=== PATIENT | male | born 1940 | race Caucasian/White ===

== ENCOUNTER 2024-02-03 14:00 | Outpatient (RCR) | payer MEDICARE, SELFPAY | END 2024-03-23 11:29 | disposition home or self-care (01) | LOC: HO.PT 14:00 | PROVIDERS: PCP Internal Medicine; Visit Provider Internal Medicine | DX: M51.36 Other intervertebral disc degeneration, lumbar region (principal) | CPT/HCPCS: 97110; 97112; 97162 ==

== ENCOUNTER 2024-10-30 18:13 | Inpatient (IN) | payer MEDICARE, SELFPAY ==
--- NOTE | 2024-10-30 | ECG_ITS ---
Test Reason : weakness Blood Pressure : */* mmHG Vent. 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
--- NOTE | ~2024-10-30 | XR_ITS ---
CLINICAL HISTORY: aspiration 1 view chest x-ray Comparison: CR/SR - XR CHEST 1V - 11/03/24 08:32 EST Findings: Slight worsened aeration in the right perihilar region. Remainder of the mediastinum and chest is unchanged. No acute fracture. IMPRESSION: Slight worsened aeration in the right perihilar region. Remainder of the examination is unchanged. This document has been electronically signed by: Azalia Ross MD on 11/05/2024 10:12:14
--- NOTE | ~2024-10-30 | CT_ITS ---
CLINICAL HISTORY: Falls with head strike CT head without contrast Comparison: None Findings: No acute intracranial hemorrhage. Mild volume loss is generalized. No significant midline shift. Cavum velum interpositum. No hydrocephalus. Vascular calcifications noted. No large arterial territorial infarction by CT. Previous cataract procedure changes with mild bilateral myopia. Fluid and mucosal thickening of the paranasal sinuses are multifocal. Small left and trace right mastoid effusions. No acute skull fracture. Scalp calcifications are nonspecific. IMPRESSION: 1. No acute intracranial abnormality by CT. One. 2. Fluid in the paranasal sinuses as can be seen with sinusitis. This document has been electronically signed by: Irvin Arrieta MD on 11/03/2024 22:18:27
--- NOTE | ~2024-10-30 | XR_ITS ---
EXAMINATION: XR CHEST CLINICAL INFORMATION: dyspnea, hpyoxia COMPARISON: October 30, 2024. TECHNIQUE: Frontal view of the chest was obtained. FINDINGS: There is a meniscal shaped opacity in the mid to lower left hemithorax with blunting of the costophrenic angle. There is blunting of the right costophrenic angle. Indistinct margins in the perihilar regions. Indistinct margins in the cardiomediastinal silhouette. No pneumothorax. Multilevel thoracic and upper lumbar spondylosis. Vascular clips in the right upper quadrant abdomen. XR/XR chest 1V IMPRESSION: Pulmonary edema and bilateral pleural effusions, left greater than right, worsened since prior exam. Electronically signed by: Wolfgang Reddy MD 11/03/2024 09:06 AM SUGAR
--- NOTE | ~2024-10-30 | XR_ITS ---
CLINICAL HISTORY: shortness of breath 1 view chest x-ray Comparison: None Findings: The lungs are clear. Normal size heart. No acute fracture. IMPRESSION: 1. No acute findings. This document has been electronically signed by: Gagandeep eLe MD on 10/30/2024 21:51:02
[2024-10-30 18:32] VITALS: BP 110/69; BP 115/62; PULSE 79; PULSE 86; RESP 19; TEMP 38.3; O2SAT 96; BMI 29.8
[2024-10-30 18:38] VITALS: BP 115/62; PULSE 79; RESP 19; TEMP 38.3; O2SAT 96
[2024-10-30] MEDS: Acetaminophen 325 MG TABLET 975 MG PO (18:47)
[2024-10-30 18:53] LABS: MANUAL DIFF FLAG NO
[2024-10-30 18:58] LABS: Basophils Percent Auto 0.3 % (0-2); Eosinophils Percent Auto 0.2 % (0-4); Hematocrit 35.7 % (42.0-52.0); Hemoglobin 12.7 g/dl (14.0-18.0); Imm Gran Abs Auto 0.11 X10*3/uL (0.00-0.03); Imm Gran Pct Auto 1.1 % (0.0-0.4); Lymphocytes Absolute Auto 0.5 X10*3/uL (1.2-4.9); Lymphocytes Percent Auto 4.5 % (20-40); Mean Corpuscular HGB Conc 35.6 g/dl (31.0-36.0); Mean Corpuscular Hemoglobin 33.8 pg (27.0-33.0); Mean Corpuscular Volume 94.9 fL (80.0-98.0); Mean Platelet Volume 9.1 fL (9.4-12.4); Monocytes Percent Auto 9.8 % (2-11); Neutrophils Absolute Auto 8.8 x10*3/uL (2.0-8.3); Neutrophils Percent Auto 84.1 % (45-73); Platelet Count 162 X10*3/uL (160-400); Red Blood Count 3.76 X10*6/uL (4.60-5.80); Red Cell Distribution Width 13.7 % (11.0-16.0); White Blood Count 10.5 X10*3/uL (4.8-10.8)
--- NOTE | 2024-10-30 19:08 | PC.NURSE ---
this rn assumed care of pt, pt a&ox4, respirations even and unlabored. pt reporting increased weakness with fall today. pt denies sob/cp. tech at bedside to redraw labs at this time.
[2024-10-30 19:25] VITALS: BP 117/60; PULSE 69; RESP 18; TEMP 37.3; O2SAT 95
[2024-10-30 19:40] VITALS: BP 109/70; PULSE 73; RESP 30; TEMP 37.3; O2SAT 94
--- NOTE | 2024-10-30 19:41 | MHC.EDTECH ---
This tech took over care of pt at 1900,rounded and introduced self to pt,vitals taken,labs,sars/flu/rsv ,urine,and both set of blood cultures obtained and sent to lab. Assisted patient with urinal,pt urinated 50MLS of yellow urine,carl-care given,call cope in reach
[2024-10-30 19:42] LABS: Lactic Acid 1.1 mmol/L (0.5-2.0)
[2024-10-30 19:43] LABS: Alanine Aminotransferase 51 U/L (0-40); Albumin Level 3.9 g/dL (3.5-5.0); Alkaline Phosphatase 69 U/L (39-117); Aspartate Amino Transferase 38 U/L (5-37); Bilirubin Direct 0.2 mg/dL (0.0-0.5); Bilirubin Total 0.6 mg/dL (0.0-1.0); Lipase 5 U/L (8-78); Total Protein 6.8 g/dL (6.5-8.0)
[2024-10-30 19:44] LABS: Alanine Aminotransferase 49 U/L (0-40); Albumin Level 3.9 g/dL (3.5-5.0); Alkaline Phosphatase 69 U/L (39-117); Anion Gap 13 (12-20); Aspartate Amino Transferase 38 U/L (5-37); Bilirubin Total 0.6 mg/dL (0.0-1.0); Blood Urea Nitrogen 30 mg/dL (9-16); Calcium 8.7 mg/dL (8.4-10.2); Carbon Dioxide 23 mmol/L (22-29); Chloride 106 mmol/L (96-108); Creatinine Clr Calc Pharmacy 48.7; Estimated Glomerular Filt Rate 58; Glucose Random 146 mg/dL (60-115); Potassium 3.6 mmol/L (3.3-5.1); Sodium 138 mmol/L (135-145); Total Protein 6.8 g/dL (6.5-8.0)
[2024-10-30 19:50] LABS: Troponin-I High Sensitivity 12.9 ng/L (<3.5-35.0)
[2024-10-30 19:52] LABS: Influenza A PCR POSITIVE (Negative); Influenza B PCR NEGATIVE (Negative); Resp Syncy Virus RNA Qual PCR NEGATIVE (Negative); SARS COV2 PCR INHOUSE NEGATIVE (Negative)
[2024-10-30 19:53] LABS: Appearance Urine Clear; Color Urine Dark Yellow; Glucose Urine UA Negative (Negative); Leukocyte Esterase Urine Negative (Negative); Nitrite Urine Negative (Negative); PH 5.5 (5.0-9.0); UMIC TRIGGER UACC YES; Urine Blood Moderate (2+) (Negative); Urine Ketones Trace mg/dL (Negative); Urine Protein 100 (2+) mg/dL (Neg-Trace)
[2024-10-30 20:10] LABS: Bacteria Urine None Seen (None Seen); Granular Casts Urine Present; WBC Urine 0-5 /HPF (0-5)
[2024-10-30] MEDS: Oseltamivir Phosphate 75 MG CAPSULE PO (20:20)
--- NOTE | 2024-10-30 20:20 | PC.NURSE ---
pt medicated per nov, tolerated well with water. bedside nursing swallow screen passed at this time.
--- NOTE | 2024-10-30 20:40 | ED_ITS ---
HPI - General Adult General Chief complaint: Weakness Stated complaint: WEAKNESS 2 FALLS FROM BED Time Seen by Provider: 10/30/24 19:08 Source: patient, RN notes reviewed and old records reviewed Mode of arrival: EMS Limitations: no limitations History of Present Illness ED Provider: Mckay SAHNI narrative: 83-year-old male with past medical history significant for hypertension, hyperlipidemia, BPH presents for evaluation of weakness. Patient reports he felt well when he woke up this morning. However around noon today he started to feel weaker than usual. He denies any pain including headaches, chest pain, abdominal pain. He denies any coughing, shortness of breath. He reports he had an outpatient test and was told that he has the flu However given that he was unable to get out of bed twice today without assistance he called EMS On the 2nd phone call they recommended he be brought to the emergency department due to his severe weakness The patient offers no complaints with the exception of weakness. He does live alone this is is currently at a short-term rehab or a broken hip Related Data Allergies Allergy/AdvReac Type Severity Reaction Status Date / Time No Known Allergies Allergy Verified 10/30/24 18:36 Review of Systems 2 Constitutional: Constitutional: Denies body ache(s), Denies chills, Denies fever(s), Denies frequent falls, Reports lethargy and Reports weakness Eyes: Eyes: Denies blurry vision ENT: Denies vertigo and Denies dizziness Cardiovascular: Cardiovascular: Denies chest pain and Denies dyspnea Respiratory: Respiratory: Denies cough and Denies dyspnea Gastrointestinal: Gastrointestinal: Denies abdominal pain, Denies nausea and Denies vomiting Musculoskeletal: Musculoskeletal: Denies back pain Neurologic: Denies vertigo, Denies dizziness, Denies frequent falls and Reports weakness [facility] Past Medical History Medical History (Updated 10/30/24 @ 21:09 by Beatriz Munguia PA-C) KASSIDY on CPAP Social History Social History Smoked in Last 30 Days: No Use of substances other than those prescribed or required for medical reasons: No Advance Directives: No Advance Directives Information Provided: No Do you have a plan to hurt others: No Plan Physical Exam ED Vital Signs: Vital Signs - 24 hr 10/30/24 18:32 10/30/24 18:38 10/30/24 19:25 Temperature 101 F H 101 F H 99.1 F Pulse Rate 79 79 69 Respiratory Rate 19 19 18 Blood Pressure 115/62 115/62 117/60 Pulse Oximetry 96 96 95 Oxygen Delivery Method Room Air Room Air Room Air 10/30/24 19:40 Temperature 99.1 F Pulse Rate 73 Respiratory Rate 30 H Blood Pressure 109/70 Pulse Oximetry 94 Oxygen Delivery Method Room Air BMI result Body Mass Index 29.8 Const General: healthy appearing, comfortable, no acute distress, alert and awake Nutritional Appearance: well nourished Orientation/consciousness: patient oriented x3 HENIL Head: Yes normocephalic and Yes atraumatic Eyes Eyelids: Yes eyelids normal Conjunctivae: conjunctivae normal Sclerae: sclerae normal Corneas: corneas normal Pupils: Equal, round and reactive pupils present EOM: EOMs intact bilaterally Neck Neck: Yes full ROM Resp Effort & Inspection: normal respiratory effort, able to speak in complete sentences, no audible wheezes and not labored Auscultation: clear to auscultation bilaterally Cardio Rate: regular rate Rhythm: regular rhythm GI Inspection: No distended Palpation (GI): Soft to palpation, not firm, nontender, no guarding and not rigid Skin General skin exam: elasticity normal Neuro General: patient oriented x3 Cranial nerves: Yes CN's II-XII intact bilaterally, Yes Equal, round and reactive pupils present and Yes Bilaterally intact EOM present Cognition (Neuro): normal cognition Extrem Other: Moving all extremities well without any obvious deformities Medications Administered Discontinued Medications Generic Name Dose Route Start Last Admin Trade Name Freq PRN Reason Stop Dose Admin Acetaminophen 975 mg 10/30/24 18:43 10/30/24 18:47 Acetaminophen 325 Mg Tablet PO 10/30/24 18:44 975 mg ONCE ONE Administration Oseltamivir Phosphate 75 mg 10/30/24 19:57 10/30/24 20:20 Oseltamivir Phosphate 75 Mg Capsule PO 10/30/24 19:58 75 mg ONCE ONE Administration Medical Decision Making Medical Decision Making [facility] Narrative: 83-year-old male with past medical history as documented above presents for evaluation of weakness. This is global weakness, he has no focal weakness or neurologic deficits. He did test positive for the flu. He was febrile to 101 on arrival which improved with acetaminophen. He is not tachycardic or hypotensive, he has no leukocytosis, he does not meet sepsis criteria. However he was a 2 person assist when standing. I did discuss with the hospitalist who will admit the patient to observation status. Differential Diagnosis Differential Diagnoses: The differential diagnosis associated with the presentation includes Influenza Bronchitis Pneumonia Upper respiratory infection CASSY Hypotension Admission/Observation Consideration of admission/observation: Escalation of care including admission/observation considered Lab Data MDM Lab Attestation statement: I reviewed the patient's lab results. No leukocytosis, the patient does have a mild anemia, not significant enough to explain his weakness. Normal platelet count. No significant electrolyte abnormalities. 10/30/24 18:49 10/30/24 19:19 Labs: Lab Results 10/30/24 10/30/24 10/30/24 Range/Units 18:49 19:11 19:19 WBC 10.5 (4.8-10.8) X10*3/uL RBC 3.76 L (4.60-5.80) X10*6/uL Hgb 12.7 L (14.0-18.0) g/dl Hct 35.7 L (42.0-52.0) % MCV 94.9 (80.0-98.0) fL MCH 33.8 H (27.0-33.0) pg MCHC 35.6 (31.0-36.0) g/dl RDW 13.7 (11.0-16.0) % Plt Count 162 (160-400) X10*3/uL MPV 9.1 L (9.4-12.4) fL Immature Gran % (Auto) 1.1 H (0.0-0.4) % Neut % (Auto) 84.1 H (45-73) % Lymph % (Auto) 4.5 L (20-40) % [place] % (Auto) 9.8 (2-11) % Eos % (Auto) 0.2 (0-4) % Baso % (Auto) 0.3 (0-2) % Lymph # (Auto) 0.5 L (1.2-4.9) X10*3/uL [place] # (Auto) 1.0 (0.1-1.2) X10*3/uL Eos # (Auto) 0.0 (0.0-0.4) X10*3/uL Baso # (Auto) 0.0 (0.0-0.2) X10*3/uL Abs Immat Gran (auto) 0.11 H (0.00-0.03) X10*3/uL Absolute Neuts (auto) 8.8 H (2.0-8.3) x10*3/uL Absolute Nucleated RBC 0.000 (0.0-0.012) X10*3/uL Nucleated RBC % (auto) 0.0 (0.0-0.2) /100WBC Sodium Cancelled 138 Potassium Cancelled 3.6 Chloride Cancelled 106 Carbon Dioxide Cancelled 23 Anion Gap Cancelled 13 BUN Cancelled 30 H Creatinine Cancelled 1.20 Estim Creat Clear Calc Cancelled 48.7 Estimated GFR Cancelled 58 Random Glucose 146 H (60-115) mg/dL Fasting Glucose Cancelled Lactic Acid 1.1 (0.5-2.0) mmol/L Calcium Cancelled 8.7 Total Bilirubin 0.6 (0.0-1.0) mg/dL Direct Bilirubin (0.0-0.5) mg/dL AST (5-37) U/L ALT (0-40) U/L Alkaline Phosphatase (39-117) U/L Troponin I High Sens (<3.5-35.0) ng/L Total Protein (6.5-8.0) g/dL Albumin (3.5-5.0) g/dL Lipase (8-78) U/L Urine Color Urine Appearance Urine pH (5.0-9.0) Ur Specific [place] (1.005-1.025) Urine Protein (Neg-Trace) mg/dL Urine Glucose (UA) (Negative) mg/dL Urine Ketones (Negative) mg/dL Urine Blood (Negative) Urine Nitrite (Negative) Ur Leukocyte Esterase (Negative) Urine RBC (0-2) /HPF Urine WBC (0-5) /HPF Ur Squamous Epith Cells (0-2) /HPF Urine Bacteria (None Seen) Hyaline Casts (0-2) /LPF Granular Casts Influenza Type A (PCR) POSITIVE A (Negative) Influenza Type B (PCR) NEGATIVE (Negative) RSV RNA Qual (PCR) NEGATIVE (Negative) SARS-CoV-2 RNA (RT-PCR) NEGATIVE (Negative) 10/30/24 10/30/24 10/30/24 Range/Units 19:19 19:19 19:19 WBC (4.8-10.8) X10*3/uL RBC (4.60-5.80) X10*6/uL Hgb (14.0-18.0) g/dl Hct (42.0-52.0) % MCV (80.0-98.0) fL MCH (27.0-33.0) pg MCHC (31.0-36.0) g/dl RDW (11.0-16.0) % Plt Count (160-400) X10*3/uL MPV (9.4-12.4) fL Immature Gran % (Auto) (0.0-0.4) % Neut % (Auto) (45-73) % Lymph % (Auto) (20-40) % [place] % (Auto) (2-11) % Eos % (Auto) (0-4) % Baso % (Auto) (0-2) % Lymph # (Auto) (1.2-4.9) X10*3/uL [place] # (Auto) (0.1-1.2) X10*3/uL Eos # (Auto) (0.0-0.4) X10*3/uL Baso # (Auto) (0.0-0.2) X10*3/uL Abs Immat Gran (auto) (0.00-0.03) X10*3/uL Absolute Neuts (auto) (2.0-8.3) x10*3/uL Absolute Nucleated RBC (0.0-0.012) X10*3/uL Nucleated RBC % (auto) (0.0-0.2) /100WBC Sodium Potassium Chloride Carbon Dioxide Anion Gap BUN Creatinine Estim Creat Clear Calc Estimated GFR Random Glucose (60-115) mg/dL Fasting Glucose Lactic Acid (0.5-2.0) mmol/L Calcium Total Bilirubin 0.6 (0.0-1.0) mg/dL Direct Bilirubin 0.2 (0.0-0.5) mg/dL AST 38 H 38 H (5-37) U/L ALT 51 H 49 H (0-40) U/L Alkaline Phosphatase 69 (39-117) U/L Troponin I High Sens (<3.5-35.0) ng/L Total Protein (6.5-8.0) g/dL Albumin (3.5-5.0) g/dL Lipase (8-78) U/L Urine Color Urine Appearance Urine pH (5.0-9.0) Ur Specific [place] (1.005-1.025) Urine Protein (Neg-Trace) mg/dL Urine Glucose (UA) (Negative) mg/dL Urine Ketones (Negative) mg/dL Urine Blood (Negative) Urine Nitrite (Negative) Ur Leukocyte Esterase (Negative) Urine RBC (0-2) /HPF Urine WBC (0-5) /HPF Ur Squamous Epith Cells (0-2) /HPF Urine Bacteria (None Seen) Hyaline Casts (0-2) /LPF Granular Casts Influenza Type A (PCR) (Negative) Influenza Type B (PCR) (Negative) RSV RNA Qual (PCR) (Negative) SARS-CoV-2 RNA (RT-PCR) (Negative) 10/30/24 10/30/24 10/30/24 Range/Units 19:19 19:19 19:19 WBC (4.8-10.8) X10*3/uL RBC (4.60-5.80) X10*6/uL Hgb (14.0-18.0) g/dl Hct (42.0-52.0) % MCV (80.0-98.0) fL MCH (27.0-33.0) pg MCHC (31.0-36.0) g/dl RDW (11.0-16.0) % Plt Count (160-400) X10*3/uL MPV (9.4-12.4) fL Immature Gran % (Auto) (0.0-0.4) % Neut % (Auto) (45-73) % Lymph % (Auto) (20-40) % [place] % (Auto) (2-11) % Eos % (Auto) (0-4) % Baso % (Auto) (0-2) % Lymph # (Auto) (1.2-4.9) X10*3/uL [place] # (Auto) (0.1-1.2) X10*3/uL Eos # (Auto) (0.0-0.4) X10*3/uL Baso # (Auto) (0.0-0.2) X10*3/uL Abs Immat Gran (auto) (0.00-0.03) X10*3/uL Absolute Neuts (auto) (2.0-8.3) x10*3/uL Absolute Nucleated RBC (0.0-0.012) X10*3/uL Nucleated RBC % (auto) (0.0-0.2) /100WBC Sodium Potassium Chloride Carbon Dioxide Anion Gap BUN Creatinine Estim Creat Clear Calc Estimated GFR Random Glucose (60-115) mg/dL Fasting Glucose Lactic Acid (0.5-2.0) mmol/L Calcium Total Bilirubin (0.0-1.0) mg/dL Direct Bilirubin (0.0-0.5) mg/dL AST (5-37) U/L ALT (0-40) U/L Alkaline Phosphatase 69 (39-117) U/L Troponin I High Sens 12.9 (<3.5-35.0) ng/L Total Protein 6.8 6.8 (6.5-8.0) g/dL Albumin 3.9 3.9 (3.5-5.0) g/dL Lipase 5 L (8-78) U/L Urine Color Urine Appearance Urine pH (5.0-9.0) Ur Specific [place] (1.005-1.025) Urine Protein (Neg-Trace) mg/dL Urine Glucose (UA) (Negative) mg/dL Urine Ketones (Negative) mg/dL Urine Blood (Negative) Urine Nitrite (Negative) Ur Leukocyte Esterase (Negative) Urine RBC (0-2) /HPF Urine WBC (0-5) /HPF Ur Squamous Epith Cells (0-2) /HPF Urine Bacteria (None Seen) Hyaline Casts (0-2) /LPF Granular Casts Influenza Type A (PCR) (Negative) Influenza Type B (PCR) (Negative) RSV RNA Qual (PCR) (Negative) SARS-CoV-2 RNA (RT-PCR) (Negative) 10/30/24 Range/Units 19:41 WBC (4.8-10.8) X10*3/uL RBC (4.60-5.80) X10*6/uL Hgb (14.0-18.0) g/dl Hct (42.0-52.0) % MCV (80.0-98.0) fL MCH (27.0-33.0) pg MCHC (31.0-36.0) g/dl RDW (11.0-16.0) % Plt Count (160-400) X10*3/uL MPV (9.4-12.4) fL Immature Gran % (Auto) (0.0-0.4) % Neut % (Auto) (45-73) % Lymph % (Auto) (20-40) % [place] % (Auto) (2-11) % Eos % (Auto) (0-4) % Baso % (Auto) (0-2) % Lymph # (Auto) (1.2-4.9) X10*3/uL [place] # (Auto) (0.1-1.2) X10*3/uL Eos # (Auto) (0.0-0.4) X10*3/uL Baso # (Auto) (0.0-0.2) X10*3/uL Abs Immat Gran (auto) (0.00-0.03) X10*3/uL Absolute Neuts (auto) (2.0-8.3) x10*3/uL Absolute Nucleated RBC (0.0-0.012) X10*3/uL Nucleated RBC % (auto) (0.0-0.2) /100WBC Sodium Potassium Chloride Carbon Dioxide Anion Gap BUN Creatinine Estim Creat Clear Calc Estimated GFR Random Glucose (60-115) mg/dL Fasting Glucose Lactic Acid (0.5-2.0) mmol/L Calcium Total Bilirubin (0.0-1.0) mg/dL Direct Bilirubin (0.0-0.5) mg/dL AST (5-37) U/L ALT (0-40) U/L Alkaline Phosphatase (39-117) U/L Troponin I High Sens (<3.5-35.0) ng/L Total Protein (6.5-8.0) g/dL Albumin (3.5-5.0) g/dL Lipase (8-78) U/L Urine Color Dark Yellow Urine Appearance Clear Urine pH 5.5 (5.0-9.0) Ur Specific [place] 1.020 (1.005-1.025) Urine Protein 100 (2+) H (Neg-Trace) mg/dL Urine Glucose (UA) Negative (Negative) mg/dL Urine Ketones Trace (Negative) mg/dL Urine Blood Moderate (2+) H (Negative) Urine Nitrite Negative (Negative) Ur Leukocyte Esterase Negative (Negative) Urine RBC 3-5 H (0-2) /HPF Urine WBC 0-5 (0-5) /HPF Ur Squamous Epith Cells 6-10 (0-2) /HPF Urine Bacteria None Seen (None Seen) Hyaline Casts 11-20 (0-2) /LPF Granular Casts Present Influenza Type A (PCR) (Negative) Influenza Type B (PCR) (Negative) RSV RNA Qual (PCR) (Negative) SARS-CoV-2 RNA (RT-PCR) (Negative) Discharge Plan Discharge Clinical Impression: Influenza A Patient Disposition: Admitted As Inpatient Print Language: Ecuadorean
--- NOTE | 2024-10-30 21:06 | PM.IMHP ---
History of Present Illness Date of Service: 10/30/24 Attending physician on admission: Arias Sutherland Chief Complaint: weakness Patient is an 83-year-old male with a past medical history significant for obstructive sleep apnea on CPAP, HTN, and dementia who presented to the ED due to weakness starting around noon today. He reports a dry to getting out of his bed twice insulin to the floor. No loss of consciousness, confusion, seizure-like activity, head strike or injuries. He does have a mild fever and body aches with runny nose but denies any sore throat, congestion, headache, chest pain or shortness of breath. He reports that he lives at [facility] and has good support when he goes back home. Review of Systems Constitutional: Constitutional: Reports body ache(s), Denies chills, Reports fatigue, Reports fever(s) and Denies headache(s) Eyes: Eyes: Denies change in vision ENT: Denies headache(s), Denies nasal congestion, Reports nasal discharge and Denies sore throat Cardiovascular: Cardiovascular: Denies chest pain, Denies rapid heart rate, Denies leg edema, Denies lightheadedness and Denies dyspnea Respiratory: Respiratory: Denies chest congestion, Reports cough (dry, mild), Denies dyspnea and Denies wheezing Gastrointestinal: Gastrointestinal: Denies constipation, Reports diarrhea (chronic), Denies nausea and Denies vomiting Genitourinary: Genitourinary: Denies dysuria, Denies urinary frequency and Denies urinary urgency Musculoskeletal: Musculoskeletal: Reports myalgias, Denies numbness and Denies tingling Integumentary/Breasts: Skin/Breast: Denies rash Neurologic: Denies confusion, Denies headache(s), Denies numbness, Denies seizure-like activity and Denies tingling Psychiatric: Psychiatric: Denies confusion Endocrine: Endocrine: Reports fatigue Hematologic/Lymphatic: Hematologic/Lymphatic: Denies easy bleeding and Denies easy bruising Allergic/Immunologic: Allergic/Immunologic: Denies wheezing [facility] Medical History (Updated 10/30/24 @ 21:09 by Beatriz Munguia PA-C) KASSIDY on CPAP Social History Patient Tobacco Use Status: Never used Tobacco Smoked in Last 30 Days: No Use of substances other than those prescribed or required for medical reasons: No Advance Directives: No Advance Directives Information Provided: No Do you have a plan to hurt others: No Plan Nutrition Risks: No Nutritional Risk Narrative: No smoking, alcohol or drug use Meds Allergies Allergy/AdvReac Type Severity Reaction Status Date / Time No Known Allergies Allergy Verified 10/30/24 18:36 Home Medications ?Medication ?Instructions ?Recorded ?Confirmed ?Last Taken ?Type amlodipine 2.5 mg tablet 2.5 mg PO DAILY 10/30/24 10/30/24 10/28/24 History donepezil 5 mg tablet 5 mg PO BEDTIME 10/30/24 10/30/24 10/28/24 History finasteride 5 mg tablet 5 mg PO DAILY 10/30/24 10/30/24 10/28/24 History lisinopril 40 mg tablet 40 mg PO DAILY 10/30/24 10/30/24 10/28/24 History metoprolol succinate 25 mg 12.5 mg PO DAILY 10/30/24 10/30/24 10/28/24 History tablet,extended release 24 hr simvastatin 40 mg tablet 20 mg PO DAILY 10/30/24 10/30/24 10/28/24 History terazosin 5 mg capsule 5 mg PO DAILY 10/30/24 10/30/24 10/28/24 History trazodone 50 mg tablet 25 - 50 mg PO BEDTIME PRN Insomnia 10/30/24 10/30/24 10/28/24 History Physical Exam Vital Signs and Narrative: Vital Signs: Last Vital Signs Temp 99.1 F 10/30/24 19:40 Pulse 73 10/30/24 19:40 Resp 30 H 10/30/24 19:40 BP 109/70 10/30/24 19:40 Pulse Ox 94 10/30/24 19:40 O2 Del Method Room Air 10/30/24 19:40 BMI result Body Mass Index 29.8 General: AOx3, no acute distress Resp: CTA bilaterally CVS: S1, S2, RRR GI: +BS, NT, no distention Skin: Warm, dry Neuro: Cranial nerves II-XII grossly intact bilaterally. Motor grossly intact bilaterally Extremities: No LE edema Psych: Appropriate affect Const: General: No confusion Orientation/consciousness: No confusion Neuro: General: No confusion Results Labs 10/30/24 18:49 10/30/24 19:19 Labs: Laboratory Results - last 24 hr 10/30/24 10/30/2425 18:49 19:11 19:19 MCV 94.9 MCH 33.8 H MCHC 35.6 RDW 13.7 Plt Count 162 MPV 9.1 L Immature Gran % (Auto) 1.1 H Neut % (Auto) 84.1 H Lymph % (Auto) 4.5 L [place] % (Auto) 9.8 Eos % (Auto) 0.2 Baso % (Auto) 0.3 Lymph # (Auto) 0.5 L [place] # (Auto) 1.0 Eos # (Auto) 0.0 Baso # (Auto) 0.0 Abs Immat Gran (auto) 0.11 H Absolute Neuts (auto) 8.8 H Absolute Nucleated RBC 0.000 Nucleated RBC % (auto) 0.0 Anion Gap Cancelled 13 Estim Creat Clear Calc Cancelled 48.7 Estimated GFR Cancelled 58 Random Glucose 146 H Fasting Glucose Cancelled Lactic Acid 1.1 Calcium Cancelled 8.7 Total Bilirubin 0.6 Direct Bilirubin AST ALT Alkaline Phosphatase Troponin I High Sens Total Protein Albumin Lipase Urine Color Urine Appearance Urine pH Ur Specific [place] Urine Protein Urine Glucose (UA) Urine Ketones Urine Blood Urine Nitrite Ur Leukocyte Esterase Urine RBC Urine WBC Ur Squamous Epith Cells Urine Bacteria Hyaline Casts Granular Casts Influenza Type A (PCR) POSITIVE A Influenza Type B (PCR) NEGATIVE RSV RNA Qual (PCR) NEGATIVE SARS-CoV-2 RNA (RT-PCR) NEGATIVE 10/30/24 10/30/24 10/30/24 19:19 19:19 19:19 MCV MCH MCHC RDW Plt Count MPV Immature Gran % (Auto) Neut % (Auto) Lymph % (Auto) [place] % (Auto) Eos % (Auto) Baso % (Auto) Lymph # (Auto) [place] # (Auto) Eos # (Auto) Baso # (Auto) Abs Immat Gran (auto) Absolute Neuts (auto) Absolute Nucleated RBC Nucleated RBC % (auto) Anion Gap Estim Creat Clear Calc Estimated GFR Random Glucose Fasting Glucose Lactic Acid Calcium Total Bilirubin 0.6 Direct Bilirubin 0.2 AST 38 H 38 H ALT 51 H 49 H Alkaline Phosphatase 69 Troponin I High Sens Total Protein Albumin Lipase Urine Color Urine Appearance Urine pH Ur Specific [place] Urine Protein Urine Glucose (UA) Urine Ketones Urine Blood Urine Nitrite Ur Leukocyte Esterase Urine RBC Urine WBC Ur Squamous Epith Cells Urine Bacteria Hyaline Casts Granular Casts Influenza Type A (PCR) Influenza Type B (PCR) RSV RNA Qual (PCR) SARS-CoV-2 RNA (RT-PCR) 10/30/24 10/30/24 10/30/24 19:19 19:19 19:19 MCV MCH MCHC RDW Plt Count MPV Immature Gran % (Auto) Neut % (Auto) Lymph % (Auto) [place] % (Auto) Eos % (Auto) Baso % (Auto) Lymph # (Auto) [place] # (Auto) Eos # (Auto) Baso # (Auto) Abs Immat Gran (auto) Absolute Neuts (auto) Absolute Nucleated RBC Nucleated RBC % (auto) Anion Gap Estim Creat Clear Calc Estimated GFR Random Glucose Fasting Glucose Lactic Acid Calcium Total Bilirubin Direct Bilirubin AST ALT Alkaline Phosphatase 69 Troponin I High Sens 12.9 Total Protein 6.8 6.8 Albumin 3.9 3.9 Lipase 5 L Urine Color Urine Appearance Urine pH Ur Specific [place] Urine Protein Urine Glucose (UA) Urine Ketones Urine Blood Urine Nitrite Ur Leukocyte Esterase Urine RBC Urine WBC Ur Squamous Epith Cells Urine Bacteria Hyaline Casts Granular Casts Influenza Type A (PCR) Influenza Type B (PCR) RSV RNA Qual (PCR) SARS-CoV-2 RNA (RT-PCR) 10/30/24 19:41 MCV MCH MCHC RDW Plt Count MPV Immature Gran % (Auto) Neut % (Auto) Lymph % (Auto) [place] % (Auto) Eos % (Auto) Baso % (Auto) Lymph # (Auto) [place] # (Auto) Eos # (Auto) Baso # (Auto) Abs Immat Gran (auto) Absolute Neuts (auto) Absolute Nucleated RBC Nucleated RBC % (auto) Anion Gap Estim Creat Clear Calc Estimated GFR Random Glucose Fasting Glucose Lactic Acid Calcium Total Bilirubin Direct Bilirubin AST ALT Alkaline Phosphatase Troponin I High Sens Total Protein Albumin Lipase Urine Color Dark Yellow Urine Appearance Clear Urine pH 5.5 Ur Specific [place] 1.020 Urine Protein 100 (2+) H Urine Glucose (UA) Negative Urine Ketones Trace Urine Blood Moderate (2+) H Urine Nitrite Negative Ur Leukocyte Esterase Negative Urine RBC 3-5 H Urine WBC 0-5 Ur Squamous Epith Cells 6-10 Urine Bacteria None Seen Hyaline Casts 11-20 Granular Casts Present Influenza Type A (PCR) Influenza Type B (PCR) RSV RNA Qual (PCR) SARS-CoV-2 RNA (RT-PCR) Assessment and Plan (1) Weakness: Status: Acute (2) Influenza A: Status: Acute Plan Patient is an 83-year-old male with a past medical history significant for obstructive sleep apnea on CPAP, HTN and dementia, who presented to the ED due to weakness starting around noon today. weakness secondary to flu A - WBC normal, lactic acid normal, mild tachypnea improved, T-max 101 degrees, blood cultures x2 pending, no sepsis - chest x-ray pending - EKG with sinus rhythm with sinus arrhythmia and first-degree AV block - started on Tamiflu in ED, continue - admit for observation due to weakness - monitor CBC and BMP KASSIDY - pt declines CPAP at this time HTN - BPs soft, hold amlodipine, lisinopril, metoprolol and terazosin for now, restart when appropriate dementia - continue donepezil DNR/DNI VTE prophy: lovenox Patient with weakness secondary to influenza A, will admit for observation secondary to advanced age and concern for more falls and monitor for improvement of weakness prior to d/c. Quality Stroke Does the patient have a stroke diagnosis?: No VTE Prior VTE?: No VTE Risk Level:: Medical - moderate - high VTE Device Contraindication: Treatment Not Indicated VTE Drug Contraindication: N/A - Med Ordered
[2024-10-30 21:23] VITALS: BP 110/59; PULSE 60; RESP 18; TEMP 37.1; O2SAT 95
--- NOTE | 2024-10-30 21:34 | MHC.CM.ED ---
Jason OLIVIER speaking with hospitalist about admission. Will follow for discharge planning if not admitted.
[2024-10-30] MEDS: Enoxaparin Sodium 40 MG/0.4 ML SYRINGE SUBCUT (21:42)
[2024-10-30 22:00] VITALS: BP 113/68; PULSE 62; RESP 18; TEMP 36.9; O2SAT 96
--- NOTE | 2024-10-30 22:39 | PHA.MEDREC ---
Addendum entered by Molly Acuña RPh 10/30/24 22:48: Med rec was reviewed by Noe. Original Note: Pharmacy Consult ? Medication Reconciliation Pharmacy has completed the medication reconciliation. Spoke with patient and he confirmed his medications. He confirmed he has not taken any medications in 2 days.
[2024-10-31] VITALS (7 sets, daily range): BP systolic 100–167; BP diastolic 53–81; PULSE 58–79; RESP 16–18; TEMP 36.1–36.9; O2SAT 93–97; BMI 25.5
[2024-10-31] MEDS: 0.9 % Sodium Chloride Flush 3 ML SYRINGE IVFLUSH ×4 (01:11→20:31)
[2024-10-31 06:57] LABS: MANUAL DIFF FLAG NO
[2024-10-31 07:12] LABS: Basophils Percent Auto 0.4 % (0-2); Eosinophils Absolute Auto 0.1 X10*3/uL (0.0-0.4); Eosinophils Percent Auto 1.4 % (0-4); Hematocrit 37.2 % (42.0-52.0); Hemoglobin 12.9 g/dl (14.0-18.0); Imm Gran Abs Auto 0.06 X10*3/uL (0.00-0.03); Imm Gran Pct Auto 0.7 % (0.0-0.4); Lymphocytes Absolute Auto 0.9 X10*3/uL (1.2-4.9); Lymphocytes Percent Auto 9.6 % (20-40); Mean Corpuscular HGB Conc 34.7 g/dl (31.0-36.0); Mean Corpuscular Hemoglobin 33.9 pg (27.0-33.0); Mean Corpuscular Volume 97.9 fL (80.0-98.0); Mean Platelet Volume 9.2 fL (9.4-12.4); Monocytes Absolute Auto 1.3 X10*3/uL (0.1-1.2); Monocytes Percent Auto 14.2 % (2-11); Neutrophils Absolute Auto 6.6 x10*3/uL (2.0-8.3); Neutrophils Percent Auto 73.7 % (45-73); Platelet Count 133 X10*3/uL (160-400); Red Cell Distribution Width 13.8 % (11.0-16.0)
[2024-10-31 07:32] LABS: Blood Urea Nitrogen 29 mg/dL (9-16); Calcium 8.8 mg/dL (8.4-10.2); Creatinine Clr Calc Pharmacy 49.7; Estimated Glomerular Filt Rate > 60; Glucose Random 99 mg/dL (60-115)
[2024-10-31 08:15] LABS: Anion Gap 19 (12-20); Carbon Dioxide 16 mmol/L (22-29); Chloride 108 mmol/L (96-108); Potassium 4.2 mmol/L (3.3-5.1); Sodium 139 mmol/L (135-145)
--- NOTE | 2024-10-31 08:20 | P.PNIM_ITS ---
Subjective Subjective Date of Service: 10/31/24 Review of Systems Follow up flu, weakness, falls better today no resp distress and not requiring oxygen Physical Exam 2 Vital Signs: Vital Signs: Last Vital Signs Temp 97.2 F 10/31/24 08:00 Pulse 65 10/31/24 08:00 Resp 18 10/31/24 08:00 BP 167/81 H 10/31/24 08:00 Pulse Ox 97 10/31/24 08:00 O2 Del Method Room Air 10/31/24 08:00 BMI result Body Mass Index 25.5 Appearing in no acute distress lung sounds are clear to auscultation heart regular rate rhythm, clear S1, S2 positive bowel sounds, abdomen is soft, nontender neuro patient is alert x3, no focal deficits Objective Data Active Medications Acetaminophen (Acetaminophen 325 Mg Tablet) 975 mg PO Q6H PRN PRN Reason: Pain, Mild 1-3,fever,headache Atorvastatin Calcium (Atorvastatin Calcium 10 Mg Tablet) 10 mg PO DAILY [facility] Benzonatate (Benzonatate 100 Mg Capsule) 100 mg PO TID PRN PRN Reason: Cough Calcium Carbonate (Calcium Carbonate 750 Mg Tab.Chew) 750 mg PO Q4H PRN PRN Reason: Heartburn Donepezil HCl (Donepezil Hcl 5 Mg Tablet) 5 mg PO BEDTIME [facility] Enoxaparin Sodium (Enoxaparin Sodium 40 Mg/0.4 Ml Syringe) 40 mg SUBCUT Q24H [facility] Last Admin: 10/30/24 21:42 Dose: 40 mg Documented By: ROB Finasteride (Finasteride 5 Mg Tablet) 5 mg PO DAILY [facility] Magnesium Hydroxide (Milk Of Magnesia 30 Ml Oral.Susp) 30 ml PO DAILY PRN PRN Reason: Constipation Melatonin (Melatonin 3 Mg Tablet) 6 mg PO BEDTIME PRN PRN Reason: Insomnia Ondansetron HCl (Ondansetron Hcl 4 Mg/2 Ml Vial) 4 mg IVPUSH Q8H PRN PRN Reason: Nausea and Vomiting Oseltamivir Phosphate (Oseltamivir Phosphate 30 Mg Capsule) 30 mg PO BID [facility] Stop: 11/04/24 21:01 Sodium Chloride (0.9 % Sodium Chloride Flush 3 Ml Syringe) 3 ml IVFLUSH QSHIFT [facility] Last Admin: 10/31/24 01:11 Dose: 3 ml Documented By: GARETT Trazodone HCl (Trazodone Hcl 25 Mg Halftab) 25 mg PO BEDTIME PRN PRN Reason: Insomnia Labs 10/31/24 05:54 10/31/24 05:54 Labs: Laboratory Results - last 24 hr 10/30/24 10/30/24 10/30/24 18:49 19:11 19:19 MCV 94.9 MCH 33.8 H MCHC 35.6 RDW 13.7 Plt Count 162 MPV 9.1 L Immature Gran % (Auto) 1.1 H Neut % (Auto) 84.1 H Lymph % (Auto) 4.5 L [place] % (Auto) 9.8 Eos % (Auto) 0.2 Baso % (Auto) 0.3 Lymph # (Auto) 0.5 L [place] # (Auto) 1.0 Eos # (Auto) 0.0 Baso # (Auto) 0.0 Abs Immat Gran (auto) 0.11 H Absolute Neuts (auto) 8.8 H Absolute Nucleated RBC 0.000 Nucleated RBC % (auto) 0.0 Anion Gap Cancelled 13 Estim Creat Clear Calc Cancelled 48.7 Estimated GFR Cancelled 58 Random Glucose 146 H Fasting Glucose Cancelled Lactic Acid 1.1 Calcium Cancelled 8.7 Total Bilirubin 0.6 Direct Bilirubin AST ALT Alkaline Phosphatase Troponin I High Sens Total Protein Albumin Lipase Urine Color Urine Appearance Urine pH Ur Specific [place] Urine Protein Urine Glucose (UA) Urine Ketones Urine Blood Urine Nitrite Ur Leukocyte Esterase Urine RBC Urine WBC Ur Squamous Epith Cells Urine Bacteria Hyaline Casts Granular Casts Influenza Type A (PCR) POSITIVE A Influenza Type B (PCR) NEGATIVE RSV RNA Qual (PCR) NEGATIVE SARS-CoV-2 RNA (RT-PCR) NEGATIVE 10/30/24 10/30/24 10/30/24 19:19 19:19 19:19 MCV MCH MCHC RDW Plt Count MPV Immature Gran % (Auto) Neut % (Auto) Lymph % (Auto) [place] % (Auto) Eos % (Auto) Baso % (Auto) Lymph # (Auto) [place] # (Auto) Eos # (Auto) Baso # (Auto) Abs Immat Gran (auto) Absolute Neuts (auto) Absolute Nucleated RBC Nucleated RBC % (auto) Anion Gap Estim Creat Clear Calc Estimated GFR Random Glucose Fasting Glucose Lactic Acid Calcium Total Bilirubin 0.6 Direct Bilirubin 0.2 AST 38 H 38 H ALT 51 H 49 H Alkaline Phosphatase 69 Troponin I High Sens Total Protein Albumin Lipase Urine Color Urine Appearance Urine pH Ur Specific [place] Urine Protein Urine Glucose (UA) Urine Ketones Urine Blood Urine Nitrite Ur Leukocyte Esterase Urine RBC Urine WBC Ur Squamous Epith Cells Urine Bacteria Hyaline Casts Granular Casts Influenza Type A (PCR) Influenza Type B (PCR) RSV RNA Qual (PCR) SARS-CoV-2 RNA (RT-PCR) 10/30/24 10/30/24 10/30/24 19:19 19:19 19:19 MCV MCH MCHC RDW Plt Count MPV Immature Gran % (Auto) Neut % (Auto) Lymph % (Auto) [place] % (Auto) Eos % (Auto) Baso % (Auto) Lymph # (Auto) [place] # (Auto) Eos # (Auto) Baso # (Auto) Abs Immat Gran (auto) Absolute Neuts (auto) Absolute Nucleated RBC Nucleated RBC % (auto) Anion Gap Estim Creat Clear Calc Estimated GFR Random Glucose Fasting Glucose Lactic Acid Calcium Total Bilirubin Direct Bilirubin AST ALT Alkaline Phosphatase 69 Troponin I High Sens 12.9 Total Protein 6.8 6.8 Albumin 3.9 3.9 Lipase 5 L Urine Color Urine Appearance Urine pH Ur Specific [place] Urine Protein Urine Glucose (UA) Urine Ketones Urine Blood Urine Nitrite Ur Leukocyte Esterase Urine RBC Urine WBC Ur Squamous Epith Cells Urine Bacteria Hyaline Casts Granular Casts Influenza Type A (PCR) Influenza Type B (PCR) RSV RNA Qual (PCR) SARS-CoV-2 RNA (RT-PCR) 10/30/24 10/31/24 19:41 05:54 MCV 97.9 MCH 33.9 H MCHC 34.7 RDW 13.8 Plt Count 133 L MPV 9.2 L Immature Gran % (Auto) 0.7 H Neut % (Auto) 73.7 H Lymph % (Auto) 9.6 L [place] % (Auto) 14.2 H Eos % (Auto) 1.4 Baso % (Auto) 0.4 Lymph # (Auto) 0.9 L [place] # (Auto) 1.3 H Eos # (Auto) 0.1 Baso # (Auto) 0.0 Abs Immat Gran (auto) 0.06 H Absolute Neuts (auto) 6.6 Absolute Nucleated RBC 0.000 Nucleated RBC % (auto) 0.0 Anion Gap 19 Estim Creat Clear Calc 49.7 Estimated GFR > 60 Random Glucose 99 Fasting Glucose Lactic Acid Calcium 8.8 Total Bilirubin Direct Bilirubin AST ALT Alkaline Phosphatase Troponin I High Sens Total Protein Albumin Lipase Urine Color Dark Yellow Urine Appearance Clear Urine pH 5.5 Ur Specific [place] 1.020 Urine Protein 100 (2+) H Urine Glucose (UA) Negative Urine Ketones Trace Urine Blood Moderate (2+) H Urine Nitrite Negative Ur Leukocyte Esterase Negative Urine RBC 3-5 H Urine WBC 0-5 Ur Squamous Epith Cells 6-10 Urine Bacteria None Seen Hyaline Casts 11-20 Granular Casts Present Influenza Type A (PCR) Influenza Type B (PCR) RSV RNA Qual (PCR) SARS-CoV-2 RNA (RT-PCR) Assessment and Plan (1) Influenza A: Status: Acute Plan Patient is an 83-year-old male with a past medical history significant for obstructive sleep apnea on CPAP, HTN and dementia, who presented to the ED due to weakness starting around noon today. Weakness, fall secondary to flu A chest x-ray pending EKG with sinus rhythm with sinus arrhythmia and first-degree AV block Tamiflu not requiring oxygen Mild transaminitis viral KASSIDY pt declines CPAP at this time HTN amlodipine, lisinopril, metoprolol and terazosin CKD3 baseline dementia continue donepezil DNR/DNI VTE prophy: tyrese DISPO PT consult, Lives in [facility] Stroke Does the patient have a stroke diagnosis?: No VTE Prior VTE?: No VTE Risk Level:: Medical - moderate - high VTE Device Contraindication: Treatment Not Indicated VTE Drug Contraindication: N/A - Med Ordered
[2024-10-31] MEDS: Doxazosin Mesylate 2 MG TABLET 4 MG PO (08:52)
[2024-10-31] MEDS: amLODIPine Besylate 2.5 MG TABLET PO (08:52)
[2024-10-31] MEDS: lisinopriL 40 MG TABLET PO (08:52)
[2024-10-31] MEDS: Metoprolol Succinate ER 12.5 MG HALFTAB.ER.24H PO (08:53)
[2024-10-31] MEDS: Finasteride 5 MG TABLET PO (08:53)
[2024-10-31] MEDS: Atorvastatin Calcium 10 MG TABLET PO (08:53)
[2024-10-31] MEDS: Oseltamivir Phosphate 30 MG CAPSULE PO ×2 (10:35→20:31)
--- NOTE | 2024-10-31 13:11 | MHC.CM.PN ---
pt from a chd run alf who will transport pt home when dcd during the week they are faxing paperwork for when pt dcd it will placed on medical record pts hcp is avi jernigan pts brother [phone]
--- NOTE | 2024-10-31 13:54 | MHC.CM.NN ---
PT ON [facility] CALLED AND L/M MESSAGE FOR SON INORDER TO COMPLETE INTAKE
[2024-10-31] MEDS: Donepezil HCl 5 MG TABLET PO (20:31)
[2024-10-31] MEDS: Enoxaparin Sodium 40 MG/0.4 ML SYRINGE SUBCUT (20:31)
[2024-11-01] VITALS (11 sets, daily range): BP systolic 72–148; BP diastolic 45–70; PULSE 57–82; RESP 14–20; TEMP 35.9–36.9; O2SAT 94–98
[2024-11-01 06:24] LABS: Basophils Percent Auto 0.3 % (0-2); Eosinophils Absolute Auto 0.1 X10*3/uL (0.0-0.4); Eosinophils Percent Auto 2.1 % (0-4); Hematocrit 34.1 % (42.0-52.0); Imm Gran Abs Auto 0.06 X10*3/uL (0.00-0.03); Lymphocytes Absolute Auto 0.9 X10*3/uL (1.2-4.9); Lymphocytes Percent Auto 13.6 % (20-40); MANUAL DIFF FLAG NO; Mean Corpuscular HGB Conc 35.2 g/dl (31.0-36.0); Mean Corpuscular Hemoglobin 33.9 pg (27.0-33.0); Mean Corpuscular Volume 96.3 fL (80.0-98.0); Mean Platelet Volume 9.4 fL (9.4-12.4); Monocytes Absolute Auto 0.8 X10*3/uL (0.1-1.2); Monocytes Percent Auto 13.2 % (2-11); Neutrophils Absolute Auto 4.4 x10*3/uL (2.0-8.3); Neutrophils Percent Auto 69.8 % (45-73); Platelet Count 141 X10*3/uL (160-400); Red Blood Count 3.54 X10*6/uL (4.60-5.80); Red Cell Distribution Width 13.3 % (11.0-16.0); White Blood Count 6.2 X10*3/uL (4.8-10.8)
[2024-11-01 06:27] LABS: Anion Gap 13 (12-20); Blood Urea Nitrogen 35 mg/dL (9-16); Calcium 8.7 mg/dL (8.4-10.2); Carbon Dioxide 25 mmol/L (22-29); Chloride 104 mmol/L (96-108); Creatinine Clr Calc Pharmacy 48.8; Estimated Glomerular Filt Rate > 60; Glucose Random 121 mg/dL (60-115); Potassium 3.3 mmol/L (3.3-5.1); Sodium 139 mmol/L (135-145)
[2024-11-01] MEDS: amLODIPine Besylate 2.5 MG TABLET PO (07:34)
[2024-11-01] MEDS: lisinopriL 40 MG TABLET PO (07:34)
[2024-11-01] MEDS: Metoprolol Succinate ER 12.5 MG HALFTAB.ER.24H PO (07:34)
[2024-11-01] MEDS: Finasteride 5 MG TABLET PO (07:34)
[2024-11-01] MEDS: Atorvastatin Calcium 10 MG TABLET PO (07:34)
[2024-11-01] MEDS: Doxazosin Mesylate 2 MG TABLET 4 MG PO (07:34)
[2024-11-01] MEDS: Oseltamivir Phosphate 30 MG CAPSULE PO ×2 (07:34→19:21)
[2024-11-01] MEDS: 0.9 % Sodium Chloride Flush 3 ML SYRINGE IVFLUSH ×2 (07:35→19:22)
[2024-11-01 08:24] LABS: Alanine Aminotransferase 60 U/L (0-40); Albumin Level 3.4 g/dL (3.5-5.0); Alkaline Phosphatase 60 U/L (39-117); Aspartate Amino Transferase 87 U/L (5-37); Bilirubin Direct 0.2 mg/dL (0.0-0.5); Bilirubin Total 0.5 mg/dL (0.0-1.0); Total Protein 6.2 g/dL (6.5-8.0)
[2024-11-01 09:32] LABS: Glucose, Whole Blood 141 mg/dL (60-115)
[2024-11-01] MEDS: Lactated Ringers 1,000 ML 999 ML IV (09:45)
[2024-11-01] MEDS: Lactated Ringers 1,000 ML 100 ML IVCONT ×2 (11:00→22:29)
--- NOTE | 2024-11-01 11:21 | MHC.CM.PN ---
PT MADE INPT TODAY
--- NOTE | 2024-11-01 12:29 | P.PNIM_ITS ---
Subjective Subjective Date of Service: 11/01/24 Interval History: felt well this AM but then became lightheaded while on commode; [employer] called, BP low at 72/45. Improved after IV LR x1L and now BP 127/63 c/o cough; no fever Review of Systems Review of Systems: Yes all other systems are reviewed and are negative Physical Exam 2 Vital Signs: Vital Signs: Last Vital Signs Temp 97.9 F 11/01/24 12:00 Pulse 70 11/01/24 12:00 Resp 17 11/01/24 12:00 BP 127/63 11/01/24 12:00 Pulse Ox 94 11/01/24 12:00 O2 Del Method Room Air 11/01/24 12:00 BMI result Body Mass Index 25.5 Gen: in no acute distress HEENT: sclera anicteric, moist mucus membranes Neck: supple Lungs: clear to auscultation bilaterally Heart: regular rate and rhythm, no murmurs Abd: soft, non-tender, non-distended Ext: no edema Skin: warm/well-perfused Neuro: alert and oriented x3, no focal findings Psych: appropriate affect Objective Data Active Medications Acetaminophen (Acetaminophen 325 Mg Tablet) 975 mg PO Q6H PRN PRN Reason: Pain, Mild 1-3,fever,headache Amlodipine Besylate (Amlodipine Besylate 2.5 Mg Tablet) 2.5 mg PO DAILY [facility]; Protocol Last Admin: 11/01/24 07:34 Dose: 2.5 mg Documented By: AMEE Atorvastatin Calcium (Atorvastatin Calcium 10 Mg Tablet) 10 mg PO DAILY [facility] Last Admin: 11/01/24 07:34 Dose: 10 mg Documented By: AMEE Benzonatate (Benzonatate 100 Mg Capsule) 100 mg PO TID PRN PRN Reason: Cough Calcium Carbonate (Calcium Carbonate 750 Mg Tab.Chew) 750 mg PO Q4H PRN PRN Reason: Heartburn Donepezil HCl (Donepezil Hcl 5 Mg Tablet) 5 mg PO BEDTIME [facility] Last Admin: 10/31/24 20:31 Dose: 5 mg Documented By: GARETT Doxazosin Mesylate (Doxazosin Mesylate 2 Mg Tablet) 4 mg PO DAILY [facility] Last Admin: 11/01/24 07:34 Dose: 4 mg Documented By: AMEE Enoxaparin Sodium (Enoxaparin Sodium 40 Mg/0.4 Ml Syringe) 40 mg SUBCUT Q24H [facility] Last Admin: 10/31/24 20:31 Dose: 40 mg Documented By: GARETT Finasteride (Finasteride 5 Mg Tablet) 5 mg PO DAILY [facility] Last Admin: 11/01/24 07:34 Dose: 5 mg Documented By: AMEE Lactated Ringer's (Lr) 1,000 mls @ 100 mls/hr IVCONT .Q10H [facility] Lisinopril (Lisinopril 40 Mg Tablet) 40 mg PO DAILY [facility]; Protocol Last Admin: 11/01/24 07:34 Dose: 40 mg Documented By: AMEE Magnesium Hydroxide (Milk Of Magnesia 30 Ml Oral.Susp) 30 ml PO DAILY PRN PRN Reason: Constipation Melatonin (Melatonin 3 Mg Tablet) 6 mg PO BEDTIME PRN PRN Reason: Insomnia Metoprolol Succinate (Metoprolol Succinate Er 12.5 Mg Halftab.Er.24h) 12.5 mg PO DAILY [facility]; Protocol Last Admin: 11/01/24 07:34 Dose: 12.5 mg Documented By: AMEE Ondansetron HCl (Ondansetron Hcl 4 Mg/2 Ml Vial) 4 mg IVPUSH Q8H PRN PRN Reason: Nausea and Vomiting Oseltamivir Phosphate (Oseltamivir Phosphate 30 Mg Capsule) 30 mg PO BID [facility] Stop: 11/04/24 21:01 Last Admin: 11/01/24 07:34 Dose: 30 mg Documented By: AMEE Sodium Chloride (0.9 % Sodium Chloride Flush 3 Ml Syringe) 3 ml IVFLUSH QSHIFT [facility] Last Admin: 11/01/24 07:35 Dose: 3 ml Documented By: AMEE Trazodone HCl (Trazodone Hcl 25 Mg Halftab) 25 mg PO BEDTIME PRN PRN Reason: Insomnia Labs 11/01/24 05:24 11/01/24 05:24 Labs: Laboratory Results - last 24 hr 11/01/24 11/01/24 05:24 09:23 MCV 96.3 MCH 33.9 H MCHC 35.2 RDW 13.3 Plt Count 141 L MPV 9.4 Immature Gran % (Auto) 1.0 H Neut % (Auto) 69.8 Lymph % (Auto) 13.6 L [place] % (Auto) 13.2 H Eos % (Auto) 2.1 Baso % (Auto) 0.3 Lymph # (Auto) 0.9 L [place] # (Auto) 0.8 Eos # (Auto) 0.1 Baso # (Auto) 0.0 Abs Immat Gran (auto) 0.06 H Absolute Neuts (auto) 4.4 Absolute Nucleated RBC 0.000 Nucleated RBC % (auto) 0.0 Anion Gap 13 Estim Creat Clear Calc 48.8 Estimated GFR > 60 POC Glucose 141 H Random Glucose 121 H Calcium 8.7 Total Bilirubin 0.5 Direct Bilirubin 0.2 AST 87 H ALT 60 H Alkaline Phosphatase 60 Total Creatine Kinase 1191 H Total Protein 6.2 L Albumin 3.4 L Microbiology Microbiology Results: Microbiology 10/30/24 19:27 Blood Culture - Preliminary Blood - Venous No growth after 24 hours. 10/30/24 19:19 Blood Culture - Preliminary Blood - Venous No growth after 24 hours. Assessment and Plan (1) Influenza A: Status: Acute Plan d3 for 83yo M with KASSIDY on CPAP, HTN, dementia presenting with weakness, fall; found to have influenza A presyncope hypotension - give IV LR, hold antihypertensives influenza A - oseltamivir 2/4- rhabdomyolysis, mild - give IV LR, recheck CPK in AM transaminasemia - cross-reactivity with CPK HTN - HOLD antihypertensives [amlodipine, lisinopril, metoprolol, doxazosin] KASSIDY - declines CPAP CKD3 - SCr stable dementia - continue donepezil HLD - atorvastatin BPH - finasteride VTE ppx - enoxaparin dispo - STR recommended In my clinical judgment, the patient requires continued inpatient hospitalization for the following reasons: IV hydration Quality Stroke Does the patient have a stroke diagnosis?: No VTE Prior VTE?: No VTE Risk Level:: Medical - moderate - high VTE Device Contraindication: Treatment Not Indicated VTE Drug Contraindication: N/A - Med Ordered
--- NOTE | 2024-11-01 15:34 | MHC.CM.PN ---
pt made inpt today imm on chart p[t will need str referral made to [facility] who will accept pending avaliable bed
[2024-11-01] MEDS: Benzonatate 100 MG CAPSULE PO (16:49)
[2024-11-01] MEDS: Donepezil HCl 5 MG TABLET PO (19:21)
[2024-11-01] MEDS: Enoxaparin Sodium 40 MG/0.4 ML SYRINGE SUBCUT (19:21)
[2024-11-02] VITALS (9 sets, daily range): BP systolic 91–150; BP diastolic 51–80; PULSE 59–95; RESP 16–20; TEMP 36–36.6; O2SAT 96–98
[2024-11-02] MEDS: Lactated Ringers 1,000 ML 100 ML IVCONT ×2 (04:30→11:07)
[2024-11-02 06:05] LABS: MANUAL DIFF FLAG NO
[2024-11-02 06:26] LABS: Anion Gap 14 (12-20); Blood Urea Nitrogen 21 mg/dL (9-16); Calcium 8.7 mg/dL (8.4-10.2); Carbon Dioxide 25 mmol/L (22-29); Chloride 105 mmol/L (96-108); Creatinine Clr Calc Pharmacy 62.2; Estimated Glomerular Filt Rate > 60; Glucose Random 135 mg/dL (60-115); Sodium 141 mmol/L (135-145)
[2024-11-02 06:41] LABS: Basophils Percent Auto 0.5 % (0-2); Eosinophils Absolute Auto 0.1 X10*3/uL (0.0-0.4); Eosinophils Percent Auto 1.3 % (0-4); Hemoglobin 12.9 g/dl (14.0-18.0); Imm Gran Abs Auto 0.05 X10*3/uL (0.00-0.03); Imm Gran Pct Auto 0.8 % (0.0-0.4); Lymphocytes Absolute Auto 1.4 X10*3/uL (1.2-4.9); Lymphocytes Percent Auto 23.5 % (20-40); Mean Corpuscular HGB Conc 34.9 g/dl (31.0-36.0); Mean Corpuscular Hemoglobin 33.3 pg (27.0-33.0); Mean Corpuscular Volume 95.6 fL (80.0-98.0); Mean Platelet Volume 9.6 fL (9.4-12.4); Monocytes Absolute Auto 0.7 X10*3/uL (0.1-1.2); Monocytes Percent Auto 10.8 % (2-11); Neutrophils Absolute Auto 3.8 x10*3/uL (2.0-8.3); Neutrophils Percent Auto 63.1 % (45-73); Platelet Count 156 X10*3/uL (160-400); Red Blood Count 3.87 X10*6/uL (4.60-5.80); Red Cell Distribution Width 13.2 % (11.0-16.0)
[2024-11-02 08:07] LABS: Magnesium 1.9 mg/dL (1.6-2.6)
[2024-11-02] MEDS: Atorvastatin Calcium 10 MG TABLET PO (08:15)
[2024-11-02] MEDS: Potassium Chloride ER 20 MEQ TAB.ER.PRT 40 MEQ PO (08:15)
[2024-11-02] MEDS: Finasteride 5 MG TABLET PO (08:15)
[2024-11-02] MEDS: Oseltamivir Phosphate 30 MG CAPSULE PO ×2 (08:15→20:29)
[2024-11-02] MEDS: Benzonatate 100 MG CAPSULE PO (08:23)
--- NOTE | 2024-11-02 10:27 | HO.PM.IMPN ---
Subjective Subjective Date of Service: 11/02/24 Interval History: no further lightheadedness BP 131/78 lying -> 93/51 standing dry cough no fever weak Review of Systems Review of Systems: Yes all other systems are reviewed and are negative Physical Exam Vital Signs: Vital Signs: Last Vital Signs Temp 96.8 F 11/02/24 07:42 Pulse 95 11/02/24 07:48 Resp 16 11/02/24 07:42 BP 93/51 L 11/02/24 07:48 Pulse Ox 97 11/02/24 07:42 O2 Del Method Room Air 11/02/24 07:42 BMI result Body Mass Index 25.5 Gen: in no acute distress HEENT: sclera anicteric, moist mucus membranes Neck: supple Lungs: clear to auscultation bilaterally Heart: regular rate and rhythm, no murmurs Abd: soft, non-tender, non-distended Ext: no edema Skin: warm/well-perfused Neuro: alert and oriented x3, no focal findings Psych: appropriate affect Objective Data Active Medications Acetaminophen (Acetaminophen 325 Mg Tablet) 975 mg PO Q6H PRN PRN Reason: Pain, Mild 1-3,fever,headache Amlodipine Besylate (Amlodipine Besylate 2.5 Mg Tablet) 2.5 mg PO DAILY [facility]; Protocol Last Admin: 11/01/24 07:34 Dose: 2.5 mg Documented By: AMEE Atorvastatin Calcium (Atorvastatin Calcium 10 Mg Tablet) 10 mg PO DAILY [facility] Last Admin: 11/02/24 08:15 Dose: 10 mg Documented By: ELENI Benzonatate (Benzonatate 100 Mg Capsule) 100 mg PO TID PRN PRN Reason: Cough Last Admin: 11/02/24 08:23 Dose: 100 mg Documented By: ELENI Calcium Carbonate (Calcium Carbonate 750 Mg Tab.Chew) 750 mg PO Q4H PRN PRN Reason: Heartburn Donepezil HCl (Donepezil Hcl 5 Mg Tablet) 5 mg PO BEDTIME [facility] Last Admin: 11/01/24 19:21 Dose: 5 mg Documented By: KILO Doxazosin Mesylate (Doxazosin Mesylate 2 Mg Tablet) 4 mg PO DAILY [facility] Last Admin: 11/01/24 07:34 Dose: 4 mg Documented By: AMEE Enoxaparin Sodium (Enoxaparin Sodium 40 Mg/0.4 Ml Syringe) 40 mg SUBCUT Q24H [facility] Last Admin: 11/01/24 19:21 Dose: 40 mg Documented By: KILO Finasteride (Finasteride 5 Mg Tablet) 5 mg PO DAILY [facility] Last Admin: 11/02/24 08:15 Dose: 5 mg Documented By: ELENI Lisinopril (Lisinopril 40 Mg Tablet) 40 mg PO DAILY [facility]; Protocol Last Admin: 11/01/24 07:34 Dose: 40 mg Documented By: AMEE Magnesium Hydroxide (Milk Of Magnesia 30 Ml Oral.Susp) 30 ml PO DAILY PRN PRN Reason: Constipation Melatonin (Melatonin 3 Mg Tablet) 6 mg PO BEDTIME PRN PRN Reason: Insomnia Metoprolol Succinate (Metoprolol Succinate Er 12.5 Mg Halftab.Er.24h) 12.5 mg PO DAILY [facility]; Protocol Last Admin: 11/01/24 07:34 Dose: 12.5 mg Documented By: AMEE Ondansetron HCl (Ondansetron Hcl 4 Mg/2 Ml Vial) 4 mg IVPUSH Q8H PRN PRN Reason: Nausea and Vomiting Oseltamivir Phosphate (Oseltamivir Phosphate 30 Mg Capsule) 30 mg PO BID [facility] Stop: 11/04/24 21:01 Last Admin: 11/02/24 08:15 Dose: 30 mg Documented By: ELENI Sodium Chloride (0.9 % Sodium Chloride Flush 3 Ml Syringe) 3 ml IVFLUSH QSHIFT [facility] Last Admin: 11/02/24 08:55 Dose: Not Given Documented By: ELENI Non-Admin Reason: IV Running Trazodone HCl (Trazodone Hcl 25 Mg Halftab) 25 mg PO BEDTIME PRN PRN Reason: Insomnia Labs 11/02/24 05:29 11/02/24 05:29 Labs: Laboratory Results - last 24 hr 11/02/24 05:29 MCV 95.6 MCH 33.3 H MCHC 34.9 RDW 13.2 Plt Count 156 L MPV 9.6 Immature Gran % (Auto) 0.8 H Neut % (Auto) 63.1 Lymph % (Auto) 23.5 [place] % (Auto) 10.8 Eos % (Auto) 1.3 Baso % (Auto) 0.5 Lymph # (Auto) 1.4 [place] # (Auto) 0.7 Eos # (Auto) 0.1 Baso # (Auto) 0.0 Abs Immat Gran (auto) 0.05 H Absolute Neuts (auto) 3.8 Absolute Nucleated RBC 0.000 Nucleated RBC % (auto) 0.0 Anion Gap 14 Estim Creat Clear Calc 62.2 Estimated GFR > 60 Random Glucose 135 H Calcium 8.7 Magnesium 1.9 Total Creatine Kinase 781 H Microbiology Microbiology Results: Microbiology 10/30/24 19:27 Blood Culture - Preliminary Blood - Venous No growth after 48 hours. 10/30/24 19:19 Blood Culture - Preliminary Blood - Venous No growth after 48 hours. Assessment and Plan (1) Influenza A: Status: Acute Plan d4 for 83yo M with KASSIDY on CPAP, HTN, dementia presenting with weakness, fall; found to have influenza A with mild rhabdomyolysis and orthostatic syncope presyncope due to orthostatic hypotension - give another round of IV LR, HOLD antihypertensives, recheck orthostatics in AM influenza A - oseltamivir 10/31-11/05 rhabdomyolysis, mild - improved with IV LR transaminasemia - cross-reactivity with CPK HTN - HOLD antihypertensives [amlodipine, lisinopril, metoprolol, doxazosin] KASSIDY - declines CPAP CKD3 - SCr stable dementia - continue donepezil HLD - atorvastatin BPH - finasteride VTE ppx - enoxaparin dispo - STR recommended In my clinical judgment, the patient requires continued inpatient hospitalization for the following reasons: IV hydration Total time managing care of this patient today: 35 minutes. Quality Stroke Does the patient have a stroke diagnosis?: No VTE Prior VTE?: No VTE Risk Level:: Medical - moderate - high VTE Device Contraindication: Treatment Not Indicated VTE Drug Contraindication: N/A - Med Ordered
--- NOTE | 2024-11-02 10:45 | MHC.CM.PN ---
Addendum entered by Verena Camara 11/02/24 11:00: CM RECEIVED A RETURN CALL FROM PTS SON, FAHAD, WHO REPORTS THEY WOULD PREFER PT TO GO TO [facility] FOR STR HE IS AWARE PT MAY BE MEDICALLY CLEARED TOMORROW AND HE WILL BE UPDATED ONCE CONFIRMED Original Note: PER MD ROUNDS, PT WILL LIKELY BE READY TO DC TOMORROW STR BEING RECOMMENDED PT WITH DOCUMENTED DEMENTIA DIAGNOSIS CM ATTEMPTED TO CONTACT PTS SON, LOLA ([phone]) TO DISCUSS DCP, VM LEFT CM ALSO ATTEMPTED TO CONTACT PTS , ALFA ([phone]), THERE WAS NO ANSWER
[2024-11-02] MEDS: Donepezil HCl 5 MG TABLET PO (20:29)
[2024-11-02] MEDS: Enoxaparin Sodium 40 MG/0.4 ML SYRINGE SUBCUT (20:29)
[2024-11-02] MEDS: QUEtiapine Fumarate 25 MG TABLET PO (22:19)
--- NOTE | 2024-11-02 23:16 | PC.NURSE ---
A&Ox2 to self and year only. Pt has hx of dementia and is on scheduled aricept. Speech is clear and neuros otherwise intact. MAEE. +perrla. VSS. 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 Breathing remains even and unlabored without distress. Pt became increasingly paranoid/more confused tonight compared to previous night of specifications writer?s care. Attempts to reassure and redirect/educate. Pt made statements including ?There is something very wrong going on out there? (pt pointing to hallway). Patient was educated he is in the hospital and has the flu. Despite this, the patient has remained very suspicious of staff and does not believe he is in the hospital. In-room camera placed and MD notified. Order for 1x po seroquel, which the pt was agreeable to taking after much reassurance and education that nursing staff are present to provide care and maintain his safety. Effectiveness of seroquel pending at this time. Second set of vitals obtained this evening and remain stable. Call cope within reach and educated on use frequently; pt does not ring appropriately to make needs known. pulmonologist intensivist made aware and, with security per patient request, also assisted this specifications writer in providing reorientation and reassurance to this patient. Please see specifications writer?s shift assessment, tasks in worklist, and MAR for full details. Handoff report given to oncoming RN.
[2024-11-03] VITALS (12 sets, daily range): BP systolic 105–153; BP diastolic 60–100; PULSE 74–106; RESP 16–22; TEMP 36.2–37.2; O2SAT 91–98
--- NOTE | 2024-11-03 | ECG_ITS ---
Test Reason : cp Blood Pressure : */* mmHG Vent. Rate : 92 BPM Atrial Rate : * BPM P-R Int : * ms QRS Dur : 76 ms QT Int : 382 ms P-R-T Axes : * -20 52 degrees QTcB Int : 472 ms Poor data quality Atrial fibrillation with premature ventricular or aberrantly conducted complexes Low voltage QRS Abnormal ECG When compared with ECG of 30-Oct-2024 18:54, Atrial fibrillation has replaced Sinus rhythm Nonspecific T wave abnormality now evident in Inferior leads Nonspecific T wave abnormality, improved in Lateral leads Referred By: Milton Valadez Electronically Signed By: Herberth Contreras
[2024-11-03] MEDS: OLANZapine 10 MG VIAL IM ×2 (01:18→04:04)
--- NOTE | 2024-11-03 06:00 | PC.NURSE ---
Addendum entered by Katelyn Boateng RN 11/03/24 07:23: Approximately around 06:00, sitter for pt called for assistance due to pt being combative, trying to climb out of bed, and agitation. Security was called to pt's room for assistance. MD Sutherland was notified of the pt's behavior. One time dose of Ativan IV was ordered and given to pt, pending effectiveness, see MAR. Pt's vital signs were taken and O2 desatted to70s/80s on RA. Pt has Hx KASSIDY- noncompliant w/ CPAP. This life underwriter place pt on 4L O2 via NC and O2 saturation came up to 91%. Will continue to monitor. Handoff report given to oncoming RN. Original Note: Upon assuming care of pt at 23:00, pt was confused (A&OX1), impulsive, agitated, getting out of bed multiple times, combative w/ female staff, resistive to care. Prior RN administered one time dose of Seroquel w/ no effect. Security called 5x total, along w/ Night Hospitalist Koko to bedside. One time dose of Zprexa IM was ordered and given to pt w/ no effect at 01:18. Pt continued with increasing confusion, agitation, impulsiveness, and combativeness to staff. MD Sutherland notified again and ordered a one time dose of Zyprexa IM. Medication administered to pt at 04:04 w/ no effect, see MAR. The Nursing Ophthalmic Pathologist was notified of the situation and this life underwriter asked for a sitter for the pt due to his behavior.? Sitter placed to pt?s bedside along with camera in room. Pt was provided with hygiene care and repositioned in bed w/ bed in lowest position and call cope within reach. Will continue to monitor pt?s behavior.?
[2024-11-03 06:25] LABS: Alanine Aminotransferase 101 U/L (0-40); Albumin Level 3.7 g/dL (3.5-5.0); Alkaline Phosphatase 66 U/L (39-117); Anion Gap 14 (12-20); Aspartate Amino Transferase 88 U/L (5-37); Bilirubin Direct 0.3 mg/dL (0.0-0.5); Bilirubin Total 0.6 mg/dL (0.0-1.0); Blood Urea Nitrogen 16 mg/dL (9-16); Calcium 9.1 mg/dL (8.4-10.2); Carbon Dioxide 24 mmol/L (22-29); Chloride 107 mmol/L (96-108); Creatinine Clr Calc Pharmacy 66.9; Estimated Glomerular Filt Rate > 60; Glucose Random 132 mg/dL (60-115); Potassium 2.9 mmol/L (3.3-5.1); Sodium 142 mmol/L (135-145); Total Protein 6.6 g/dL (6.5-8.0)
[2024-11-03] MEDS: LORazepam 2 MG/ML VIAL 1 MG IVPUSH (06:29)
[2024-11-03] MEDS: Lactated Ringers 1,000 ML 100 ML IVCONT (06:43)
[2024-11-03] MEDS: Potassium Chloride/H20 10 MEQ/100 ML PIGGYBACK 100 MEQ IV ×4 (06:49→11:12)
--- NOTE | 2024-11-03 08:06 | PC.RT ---
RT called to bedside for pt low SATs. Upon arrival, pt uncooperative and taking off NC. SATs low 80's on RA. RT placed NC back in pt nose and RN called MD to bedside. PT snoring respirations, not an appropriate candidate for CPAP at this time due to mental status and restraints. Pt was restrained. SATs 94% on NC. Pt transferred to 4th floor for continuous monitoring.
[2024-11-03 08:11] LABS: Magnesium 1.8 mg/dL (1.6-2.6)
[2024-11-03 08:25] LABS: Procalcitonin 0.07 ng/mL
[2024-11-03] MEDS: flumazeniL 0.5 MG/5 ML VIAL 0.2 MG IV (08:48)
[2024-11-03 09:02] LABS: TSH reflex Free T4 2.43 uIU/mL (0.32-4.0)
[2024-11-03] MEDS: Enoxaparin Sodium 80 MG/0.8 ML SYRINGE 70 MG SUBCUT (09:26)
[2024-11-03] MEDS: flumazeniL 0.5 MG/5 ML VIAL 0.3 MG IV (09:27)
[2024-11-03] MEDS: Furosemide 20 MG/2 ML VIAL IVPUSH (11:16)
--- NOTE | 2024-11-03 11:32 | P.PNIM_ITS ---
Subjective Subjective Date of Service: 11/03/24 Interval History: overnight became agitated/delirious, pulling at lines; was given 10 mg IM olanzapine x2 plus 1 mg IV lorazepam this AM extremely sedated, snoring respirations, periods of apnea up to 30-45 sec that have resolved after flumazenil 0.2 mg then 0.3 mg also noted to be in rate-controlled atrial flutter which is new for him son at bedside, updated Review of Systems Review of Systems: Yes Unobtainable due to mental status Physical Exam 2 Vital Signs: Vital Signs: Last Vital Signs Temp 97.1 F 11/03/24 08:30 Pulse 86 11/03/24 09:30 Resp 16 11/03/24 08:30 BP 128/100 H 11/03/24 11:16 Pulse Ox 96 11/03/24 09:30 O2 Del Method Nasal Cannula 11/03/24 09:30 O2 Flow Rate 4 11/03/24 09:30 BMI result Body Mass Index 25.5 Gen: delirious HEENT: sclera anicteric, moist mucus membranes Neck: supple Lungs: diminished, snoring respirations Heart: regular rate and rhythm, no murmurs Abd: soft, non-tender, non-distended Ext: no edema Skin: warm/well-perfused Neuro: somnolent but arousable, moves all extremities, does not follow commands Psych: impaired insight Objective Data Active Medications Acetaminophen (Acetaminophen 325 Mg Tablet) 975 mg PO Q6H PRN PRN Reason: Pain, Mild 1-3,fever,headache Amlodipine Besylate (Amlodipine Besylate 2.5 Mg Tablet) 2.5 mg PO DAILY [facility]; Protocol Last Admin: 11/01/24 07:34 Dose: 2.5 mg Documented By: AMEE Atorvastatin Calcium (Atorvastatin Calcium 10 Mg Tablet) 10 mg PO DAILY [facility] Last Admin: 11/03/24 08:22 Dose: Not Given Documented By: KEYSHAWN Non-Admin Reason: Physician Approved Benzonatate (Benzonatate 100 Mg Capsule) 100 mg PO TID PRN PRN Reason: Cough Last Admin: 11/02/24 08:23 Dose: 100 mg Documented By: ELENI Calcium Carbonate (Calcium Carbonate 750 Mg Tab.Chew) 750 mg PO Q4H PRN PRN Reason: Heartburn Donepezil HCl (Donepezil Hcl 5 Mg Tablet) 5 mg PO BEDTIME [facility] Last Admin: 11/02/24 20:29 Dose: 5 mg Documented By: KILO Doxazosin Mesylate (Doxazosin Mesylate 2 Mg Tablet) 4 mg PO DAILY [facility] Last Admin: 11/01/24 07:34 Dose: 4 mg Documented By: AMEE Enoxaparin Sodium (Enoxaparin Sodium 80 Mg/0.8 Ml Syringe) 70 mg SUBCUT Q12H [facility] Last Admin: 11/03/24 09:26 Dose: 70 mg Documented By: KEYSHAWN Finasteride (Finasteride 5 Mg Tablet) 5 mg PO DAILY [facility] Last Admin: 11/03/24 08:22 Dose: Not Given Documented By: KEYSHAWN Non-Admin Reason: Physician Approved Flumazenil (Flumazenil 0.5 Mg/5 Ml Vial) 0.3 mg IV ONCE PRN PRN Reason: Benzodiazepine overdose Last Admin: 11/03/24 09:27 Dose: 0.3 mg Documented By: KEYSHAWN Flumazenil (Flumazenil 0.5 Mg/5 Ml Vial) 0.5 mg IV ONCE PRN PRN Reason: Benzodiazepine overdose Lisinopril (Lisinopril 40 Mg Tablet) 40 mg PO DAILY [facility]; Protocol Last Admin: 11/01/24 07:34 Dose: 40 mg Documented By: AMEE Magnesium Hydroxide (Milk Of Magnesia 30 Ml Oral.Susp) 30 ml PO DAILY PRN PRN Reason: Constipation Melatonin (Melatonin 3 Mg Tablet) 6 mg PO BEDTIME PRN PRN Reason: Insomnia Metoprolol Succinate (Metoprolol Succinate Er 12.5 Mg Halftab.Er.24h) 12.5 mg PO DAILY [facility]; Protocol Last Admin: 11/01/24 07:34 Dose: 12.5 mg Documented By: AMEE Ondansetron HCl (Ondansetron Hcl 4 Mg/2 Ml Vial) 4 mg IVPUSH Q8H PRN PRN Reason: Nausea and Vomiting Oseltamivir Phosphate (Oseltamivir Phosphate 30 Mg Capsule) 30 mg PO BID [facility] Stop: 11/04/24 21:01 Last Admin: 11/03/24 08:22 Dose: Not Given Documented By: KEYSHAWN Non-Admin Reason: Physician Approved Sodium Chloride (0.9 % Sodium Chloride Flush 3 Ml Syringe) 3 ml IVFLUSH QSHIFT [facility] Last Admin: 11/03/24 08:22 Dose: Not Given Documented By: KEYSHAWN Non-Admin Reason: IV Running Trazodone HCl (Trazodone Hcl 25 Mg Halftab) 25 mg PO BEDTIME PRN PRN Reason: Insomnia Labs 11/02/24 05:29 11/03/24 05:36 Labs: Laboratory Results - last 24 hr 11/03/24 05:36 Anion Gap 14 Estim Creat Clear Calc 66.9 Estimated GFR > 60 Random Glucose 132 H Calcium 9.1 Magnesium 1.8 Total Bilirubin 0.6 Direct Bilirubin 0.3 AST 88 H ALT 101 H Alkaline Phosphatase 66 Total Creatine Kinase 581 H Total Protein 6.6 Albumin 3.7 Procalcitonin 0.07 TSH 2.43 Impressions Chest X-Ray 11/03/24 08:30 IMPRESSION: Pulmonary edema and bilateral pleural effusions, left greater than right, worsened since prior exam. Electronically signed by: Wolfgang Reddy MD 11/03/2024 09:06 AM [facility] Assessment and Plan (1) Influenza A: Status: Acute Plan d5 for 83yo M with KASSIDY on CPAP, HTN, dementia presenting with weakness, fall; found to have influenza A with mild rhabdomyolysis and orthostatic syncope hospitalization complicated by encephalopathy acute toxic encephalopathy - likely due to excess olanzapine + lorazepam; given flumazenil; transferred to [facility], wrist restraints in place to prevent him from pulling lines; continuous SaO2 new-onset AF - rate-controlled at this time; replete K; TTE; consult Cardiology; hold off on full anticoagulation for now hypoK - replete IV, recheck level in AM fluid overload - give furosemide 20 mg IV x1, check TTE presyncope due to orthostatic hypotension - given IV LR but now appears overloaded; holding anithypertensives influenza A - oseltamivir 10/31-11/05 rhabdomyolysis, mild - improved with IV LR transaminasemia - due to cross-reactivity with CPK HTN - HOLD antihypertensives [amlodipine, lisinopril, metoprolol, doxazosin] KASSIDY - declined CPAP in past CKD3 - SCr stable dementia - donepezil HLD - atorvastatin BPH - finasteride VTE ppx - enoxaparin dispo - STR recommended In my clinical judgment, the patient requires continued inpatient hospitalization for the following reasons: encephalopathy Total time managing care of this patient today: 60 minutes. Quality Stroke Does the patient have a stroke diagnosis?: No VTE Prior VTE?: No VTE Risk Level:: Medical - moderate - high VTE Device Contraindication: Treatment Not Indicated VTE Drug Contraindication: N/A - Med Ordered
--- NOTE | 2024-11-03 11:44 | MHC.CM.PN ---
Per rounds and EMR review, pt is not ready to DC, he requires IV hydration. DCP is STR at [facility], he is accepted and they will pursue auth when pt. is ready to DC.
[2024-11-03] MEDS: flumazeniL 0.5 MG/5 ML VIAL IV (13:06)
--- NOTE | 2024-11-03 14:06 | ECG_ITS ---
Test Reason : self converted Blood Pressure : */* mmHG Vent. Rate : 86 BPM Atrial Rate : 86 BPM P-R Int : 190 ms QRS Dur : 74 ms QT Int : 384 ms P-R-T Axes : 45 -24 47 degrees QTcB Int : 459 ms Sinus rhythm with marked sinus arrhythmia Low voltage QRS Cannot rule out Anterior infarct , age undetermined Abnormal ECG When compared with ECG of 03-Nov-2024 08:03, Sinus rhythm has replaced Atrial fibrillation Minimal criteria for Anterior infarct are now Present T wave inversion no longer evident in Anterior leads Referred By: Milton Valadez Electronically Signed By: Herberth Contreras
--- NOTE | 2024-11-03 16:30 | PM.CNCAR ---
History of Present Illness History of Present Illness Date of Service: 11/03/24 Requesting physician: Milton Valadez Chief complaint: Flu A, atrial fibrillation Narrative: 83-year-old gentleman presenting for influenza. He has background of dementia and is acutely delirious and agitated currently. No history is possible currently. He had EKG performed which showed atrial fibrillation. He is rate controlled currently. He is not on anticoagulation. Quite agitated currently and actually presented with fall from home. There is some question about orthostasis also because of poor p.o. intake. [facility] Past Medical History Medical History (Updated 11/03/24 @ 16:31 by Herberth Contreras MD) KASSIDY on CPAP Social History Social History Comment: camera placed for increased confusion/paranoid. aware Patient Tobacco Use Status: Never used Tobacco Smoked in Last 30 Days: No Use of substances other than those prescribed or required for medical reasons: No Currently Displaying Signs/Symptoms of Drug Intoxication Withdrawal: No Advance Directives: No Advance Directives Information Provided: No Do you have a plan to hurt others: No Plan Nutrition Risks: No Nutritional Risk service: No Meds Allergies Allergy/AdvReac Type Severity Reaction Status Date / Time No Known Allergies Allergy Verified 10/30/24 18:36 Active Medications: Current Medications Acetaminophen (Acetaminophen 325 Mg Tablet) 975 mg PO Q6H PRN PRN Reason: Pain, Mild 1-3,fever,headache Amlodipine Besylate (Amlodipine Besylate 2.5 Mg Tablet) 2.5 mg PO DAILY [facility]; Protocol Last Admin: 11/01/24 07:34 Dose: 2.5 mg Atorvastatin Calcium (Atorvastatin Calcium 10 Mg Tablet) 10 mg PO DAILY [facility] Last Admin: 11/03/24 08:22 Dose: Not Given Benzonatate (Benzonatate 100 Mg Capsule) 100 mg PO TID PRN PRN Reason: Cough Last Admin: 11/02/24 08:23 Dose: 100 mg Calcium Carbonate (Calcium Carbonate 750 Mg Tab.Chew) 750 mg PO Q4H PRN PRN Reason: Heartburn Donepezil HCl (Donepezil Hcl 5 Mg Tablet) 5 mg PO BEDTIME [facility] Last Admin: 11/02/24 20:29 Dose: 5 mg Doxazosin Mesylate (Doxazosin Mesylate 2 Mg Tablet) 4 mg PO DAILY [facility] Last Admin: 11/01/24 07:34 Dose: 4 mg Enoxaparin Sodium (Enoxaparin Sodium 80 Mg/0.8 Ml Syringe) 40 mg SUBCUT Q24H [facility] Last Admin: 11/03/24 12:22 Dose: Not Given Finasteride (Finasteride 5 Mg Tablet) 5 mg PO DAILY [facility] Last Admin: 11/03/24 08:22 Dose: Not Given Flumazenil (Flumazenil 0.5 Mg/5 Ml Vial) 0.3 mg IV ONCE PRN PRN Reason: Benzodiazepine overdose Last Admin: 11/03/24 09:27 Dose: 0.3 mg Flumazenil (Flumazenil 0.5 Mg/5 Ml Vial) 0.5 mg IV ONCE PRN PRN Reason: Benzodiazepine overdose Last Admin: 11/03/24 13:06 Dose: 0.5 mg Lisinopril (Lisinopril 40 Mg Tablet) 40 mg PO DAILY [facility]; Protocol Last Admin: 11/01/24 07:34 Dose: 40 mg Magnesium Hydroxide (Milk Of Magnesia 30 Ml Oral.Susp) 30 ml PO DAILY PRN PRN Reason: Constipation Melatonin (Melatonin 3 Mg Tablet) 6 mg PO BEDTIME PRN PRN Reason: Insomnia Metoprolol Succinate (Metoprolol Succinate Er 12.5 Mg Halftab.Er.24h) 12.5 mg PO DAILY [facility]; Protocol Last Admin: 11/01/24 07:34 Dose: 12.5 mg Ondansetron HCl (Ondansetron Hcl 4 Mg/2 Ml Vial) 4 mg IVPUSH Q8H PRN PRN Reason: Nausea and Vomiting Oseltamivir Phosphate (Oseltamivir Phosphate 30 Mg Capsule) 30 mg PO BID [facility] Stop: 11/04/24 21:01 Last Admin: 11/03/24 08:22 Dose: Not Given Sodium Chloride (0.9 % Sodium Chloride Flush 3 Ml Syringe) 3 ml IVFLUSH QSHIFT [facility] Last Admin: 11/03/24 08:22 Dose: Not Given Trazodone HCl (Trazodone Hcl 25 Mg Halftab) 25 mg PO BEDTIME PRN PRN Reason: Insomnia Home Medications ?Medication ?Instructions ?Recorded ?Confirmed ?Last Taken ?Type amlodipine 2.5 mg tablet 2.5 mg PO DAILY 10/30/24 10/30/24 10/28/24 History donepezil 5 mg tablet 5 mg PO BEDTIME 10/30/24 10/30/24 10/28/24 History finasteride 5 mg tablet 5 mg PO DAILY 10/30/24 10/30/24 10/28/24 History lisinopril 40 mg tablet 40 mg PO DAILY 10/30/24 10/30/24 10/28/24 History metoprolol succinate 25 mg 12.5 mg PO DAILY 10/30/24 10/30/24 10/28/24 History tablet,extended release 24 hr simvastatin 40 mg tablet 20 mg PO DAILY 10/30/24 10/30/24 10/28/24 History terazosin 5 mg capsule 5 mg PO DAILY 10/30/24 10/30/24 10/28/24 History trazodone 50 mg tablet 25 - 50 mg PO BEDTIME PRN Insomnia 10/30/24 10/30/24 10/28/24 History Physical Exam Vital Signs: Vital Signs: Last Vital Signs Temp 98.5 F 11/03/24 15:30 Pulse 90 11/03/24 15:30 Resp 18 11/03/24 15:30 BP 128/89 11/03/24 15:30 Pulse Ox 97 11/03/24 15:30 O2 Del Method Nasal Cannula 11/03/24 15:30 O2 Flow Rate 4 11/03/24 15:30 BMI result Body Mass Index 25.5 GENERAL APPEARANCE: Agitated and confused. SKIN: no suspicious lesions, warm and dry. HEART: no murmurs, irregular rate and rhythm. LUNGS: clear to auscultation bilaterally. ABDOMEN: soft, nontender. EXTREMITIES: no edema. PERIPHERAL PULSES: equal. NEUROLOGIC: Agitated. In soft restraints. Objective Labs and Meds 11/02/24 05:29 11/03/24 05:36 Lab results: Laboratory Results - last 24 hr 11/03/24 05:36 Sodium 142 Potassium 2.9 L* Chloride 107 Carbon Dioxide 24 Anion Gap 14 BUN 16 Creatinine 0.78 Estim Creat Clear Calc 66.9 Estimated GFR > 60 Random Glucose 132 H Calcium 9.1 Magnesium 1.8 Total Bilirubin 0.6 Direct Bilirubin 0.3 AST 88 H ALT 101 H Alkaline Phosphatase 66 Total Creatine Kinase 581 H Total Protein 6.6 Albumin 3.7 Procalcitonin 0.07 TSH 2.43 Imaging Radiologist's impression: Impressions Chest X-Ray 11/03/24 08:30 IMPRESSION: Pulmonary edema and bilateral pleural effusions, left greater than right, worsened since prior exam. Electronically signed by: Wolfgang Reddy MD 11/03/2024 09:06 AM [facility] Assessment and Plan (1) Influenza A: Status: Acute (2) PAF (paroxysmal atrial fibrillation): Status: Acute Plan 83 gentleman with influenza A and delirium. He has been noticed to have AFib on telemetry. Presented with fall. Apparently has been going downhill from dementia as per discussion with son. Currently quite agitated and confused. As he improves we can do assessment were physiotherapy that what his his fall risk and then decide were anticoagulation. If he has high fall risk then would probably be careful currently starting any anticoagulation. Gentle hydration for orthostasis and poor p.o. intake. Monitor potassium closely and replete. Thank you for allowing me to participate in the care of your patient. Please feel free to contact me if you have any questions. Procedures Date of Service Date of Service: 11/03/24
[2024-11-03] MEDS: 0.9 % Sodium Chloride Flush 3 ML SYRINGE IVFLUSH (16:57)
[2024-11-03 17:24] LABS: VBG Base Excess 6.6 mmol/L; VBG HCO3 30 mmol/L (22-26); VBG pCO2 39 mmHg; VBG pH 7.49 (7.32-7.43); VBG pO2 58 mmHg
[2024-11-03 17:49] LABS: Venous Blood Gas Refer to POC result
[2024-11-04] MEDS: Dextrose 5 % and Lactated Ring 1,000 ML 100 ML IVCONT (02:43)
[2024-11-04 04:00] VITALS: BP 142/72; PULSE 68; RESP 26; TEMP 37.2; O2SAT 93
[2024-11-04 07:03] VITALS: BP 140/94; PULSE 83; RESP 18; TEMP 36.7; O2SAT 92
[2024-11-04 07:37] LABS: VBG Base Excess 6.7 mmol/L; VBG HCO3 30 mmol/L (22-26); VBG pCO2 38 mmHg; VBG pO2 54 mmHg
[2024-11-04 07:39] LABS: Hematocrit 39.1 % (42.0-52.0); Hemoglobin 13.8 g/dl (14.0-18.0); Mean Corpuscular HGB Conc 35.3 g/dl (31.0-36.0); Mean Corpuscular Hemoglobin 33.4 pg (27.0-33.0); Mean Corpuscular Volume 94.7 fL (80.0-98.0); Mean Platelet Volume 9.2 fL (9.4-12.4); Platelet Count 168 X10*3/uL (160-400); Red Blood Count 4.13 X10*6/uL (4.60-5.80); Red Cell Distribution Width 13.2 % (11.0-16.0); White Blood Count 12.2 X10*3/uL (4.8-10.8)
[2024-11-04 07:40] LABS: Venous Blood Gas Refer to POC result
[2024-11-04 08:06] LABS: Anion Gap 14 (12-20); Blood Urea Nitrogen 16 mg/dL (9-16); Carbon Dioxide 27 mmol/L (22-29); Chloride 105 mmol/L (96-108); Creatinine Clr Calc Pharmacy 61.4; Estimated Glomerular Filt Rate > 60; Glucose Random 173 mg/dL (60-115); Magnesium 1.7 mg/dL (1.6-2.6); Potassium 3.2 mmol/L (3.3-5.1); Sodium 143 mmol/L (135-145)
[2024-11-04 08:09] LABS: B Type Natriuretic Peptide 90 pg/mL (<100)
[2024-11-04] MEDS: Oseltamivir Phosphate 30 MG CAPSULE PO (09:40)
[2024-11-04] MEDS: 0.9 % Sodium Chloride Flush 3 ML SYRINGE IVFLUSH ×3 (09:40→23:17)
[2024-11-04] MEDS: Atorvastatin Calcium 10 MG TABLET PO (09:40)
[2024-11-04] MEDS: Finasteride 5 MG TABLET PO (09:40)
[2024-11-04 11:32] VITALS: BP 124/90; PULSE 74; RESP 18; TEMP 36.6; O2SAT 92
--- NOTE | 2024-11-04 11:41 | P.PNIM_ITS ---
Subjective Subjective Date of Service: 11/04/24 Interval History: oriented to self but otherwise quite disoriented, though improved from yesterday breathing improved as well Review of Systems Review of Systems: Yes Unobtainable due to mental status Physical Exam 2 Vital Signs: Vital Signs: Last Vital Signs Temp 97.9 F 11/04/24 11:32 Pulse 74 11/04/24 11:32 Resp 18 11/04/24 11:32 BP 124/90 H 11/04/24 11:32 Pulse Ox 92 11/04/24 11:32 O2 Del Method Nasal Cannula 11/04/24 11:32 O2 Flow Rate 1 11/04/24 11:32 BMI result Body Mass Index 25.5 Gen: in no acute distress HEENT: sclera anicteric, moist mucus membranes Neck: supple Lungs: diminished Heart: regular rate and rhythm, no murmurs Abd: soft, non-tender, non-distended Ext: no edema Skin: warm/well-perfused Neuro: alert and oriented to self only, moves all extremities Psych: impaired insight Objective Data Active Medications Acetaminophen (Acetaminophen 325 Mg Tablet) 975 mg PO Q6H PRN PRN Reason: Pain, Mild 1-3,fever,headache Amlodipine Besylate (Amlodipine Besylate 2.5 Mg Tablet) 2.5 mg PO DAILY [facility]; Protocol Last Admin: 11/01/24 07:34 Dose: 2.5 mg Documented By: AMEE Atorvastatin Calcium (Atorvastatin Calcium 10 Mg Tablet) 10 mg PO DAILY [facility] Last Admin: 11/04/24 09:40 Dose: 10 mg Documented By: DENNIS Benzonatate (Benzonatate 100 Mg Capsule) 100 mg PO TID PRN PRN Reason: Cough Last Admin: 11/02/24 08:23 Dose: 100 mg Documented By: ELENI Calcium Carbonate (Calcium Carbonate 750 Mg Tab.Chew) 750 mg PO Q4H PRN PRN Reason: Heartburn Donepezil HCl (Donepezil Hcl 5 Mg Tablet) 5 mg PO BEDTIME [facility] Last Admin: 11/03/24 23:33 Dose: Not Given Documented By: MAINE Non-Admin Reason: lethargy Doxazosin Mesylate (Doxazosin Mesylate 2 Mg Tablet) 4 mg PO DAILY [facility] Last Admin: 11/01/24 07:34 Dose: 4 mg Documented By: AMEE Enoxaparin Sodium (Enoxaparin Sodium 80 Mg/0.8 Ml Syringe) 40 mg SUBCUT Q24H [facility] Last Admin: 11/03/24 12:22 Dose: Not Given Documented By: KEYSHAWN Non-Admin Reason: Physician Approved Comments: ordered to hold this dose Finasteride (Finasteride 5 Mg Tablet) 5 mg PO DAILY [facility] Last Admin: 11/04/24 09:40 Dose: 5 mg Documented By: DENNIS Flumazenil (Flumazenil 0.5 Mg/5 Ml Vial) 0.3 mg IV ONCE PRN PRN Reason: Benzodiazepine overdose Last Admin: 11/03/24 09:27 Dose: 0.3 mg Documented By: KEYSHAWN Flumazenil (Flumazenil 0.5 Mg/5 Ml Vial) 0.5 mg IV ONCE PRN PRN Reason: Benzodiazepine overdose Last Admin: 11/03/24 13:06 Dose: 0.5 mg Documented By: KEYSHAWN Dextrose/Lactated Ringer's (D5lr) 1,000 mls @ 100 mls/hr IVCONT .Q10H ONE Stop: 11/04/24 11:48 Last Admin: 11/04/24 02:43 Dose: 100 mls/hr Documented By: MAINE Lisinopril (Lisinopril 40 Mg Tablet) 40 mg PO DAILY [facility]; Protocol Last Admin: 11/01/24 07:34 Dose: 40 mg Documented By: AMEE Magnesium Hydroxide (Milk Of Magnesia 30 Ml Oral.Susp) 30 ml PO DAILY PRN PRN Reason: Constipation Melatonin (Melatonin 3 Mg Tablet) 6 mg PO BEDTIME PRN PRN Reason: Insomnia Metoprolol Succinate (Metoprolol Succinate Er 12.5 Mg Halftab.Er.24h) 12.5 mg PO DAILY [facility]; Protocol Last Admin: 11/01/24 07:34 Dose: 12.5 mg Documented By: AMEE Ondansetron HCl (Ondansetron Hcl 4 Mg/2 Ml Vial) 4 mg IVPUSH Q8H PRN PRN Reason: Nausea and Vomiting Oseltamivir Phosphate (Oseltamivir Phosphate 30 Mg Capsule) 30 mg PO BID [facility] Stop: 11/04/24 21:01 Last Admin: 11/04/24 09:40 Dose: 30 mg Documented By: DENNIS Sodium Chloride (0.9 % Sodium Chloride Flush 3 Ml Syringe) 3 ml IVFLUSH QSHIFT ELIGIO Last Admin: 11/04/24 09:40 Dose: 3 ml Documented By: EVANGELISTA-JEY Trazodone HCl (Trazodone Hcl 25 Mg Halftab) 25 mg PO BEDTIME PRN PRN Reason: Insomnia Labs 11/04/24 07:25 11/04/24 07:25 Labs: Laboratory Results - last 24 hr 11/03/24 11/04/24 11/04/24 17:16 07:25 07:31 MCV 94.7 MCH 33.4 H MCHC 35.3 RDW 13.2 Plt Count 168 MPV 9.2 L Absolute Nucleated RBC 0.000 Nucleated RBC % (auto) 0.0 VBG pH 7.49 H 7.50 H VBG pCO2 39 38 VBG pO2 58 54 VBG HCO3 30 H 30 H VBG O2 Saturation 87.0 86.0 VBG Base Excess 6.6 6.7 Anion Gap 14 Estim Creat Clear Calc 61.4 Estimated GFR > 60 Random Glucose 173 H Calcium 9.0 Magnesium 1.7 B-Natriuretic Peptide 90 Assessment and Plan (1) Influenza A: Status: Acute Plan d6 for 83yo M with KASSIDY on CPAP, HTN, dementia presenting with weakness, fall; found to have influenza A with mild rhabdomyolysis and orthostatic syncope hospitalization complicated by acute encephalopathy 11/02-11/03 acute toxic encephalopathy - likely due to excess olanzapine + lorazepam; given flumazenil 11/03 and apperas improved; restraints removed new-onset AF - noted on telemetry 11/03; converted to NSR same day; replete K; TTE pending; Cardiology consulted; hold off on full anticoagulation for now hypoK - replete PO, recheck level in AM fluid overload - appears euvolemic now presyncope due to orthostatic hypotension - given IV LR but then became overloaded; anithypertensives held influenza A - oseltamivir 10/31-11/05 rhabdomyolysis, mild - improved with IV LR transaminasemia - due to cross-reactivity with CPK HTN - HOLD antihypertensives [amlodipine, lisinopril, metoprolol, doxazosin] KASSIDY - declined CPAP in past CKD3 - SCr stable dementia - donepezil HLD - atorvastatin BPH - finasteride VTE ppx - enoxaparin dispo - STR recommended In my clinical judgment, the patient requires continued inpatient hospitalization for the following reasons: encephalopathy Total time managing care of this patient today: 60 minutes. Quality Stroke Does the patient have a stroke diagnosis?: No VTE Prior VTE?: No VTE Risk Level:: Medical - moderate - high VTE Device Contraindication: Treatment Not Indicated VTE Drug Contraindication: N/A - Med Ordered
[2024-11-04] MEDS: Enoxaparin Sodium 80 MG/0.8 ML SYRINGE 40 MG SUBCUT (12:02)
[2024-11-04] MEDS: Potassium Chloride Packet 20 MEQ PACKET 40 MEQ PO (12:03)
[2024-11-04 15:19] VITALS: BP 123/76; PULSE 96; RESP 18; TEMP 36.6; O2SAT 93
[2024-11-04 19:14] VITALS: BP 139/80; PULSE 82; RESP 18; TEMP 37; O2SAT 96
[2024-11-04 23:19] VITALS: BP 144/66; PULSE 74; RESP 22; TEMP 36.7; O2SAT 94
[2024-11-05] VITALS (15 sets, daily range): BP systolic 90–150; BP diastolic 53–84; PULSE 36–93; RESP 18–30; TEMP 36.5–37.2; O2SAT 89–99
[2024-11-05 07:46] LABS: Hematocrit 39.6 % (42.0-52.0); Hemoglobin 13.3 g/dl (14.0-18.0); Mean Corpuscular HGB Conc 33.6 g/dl (31.0-36.0); Mean Corpuscular Hemoglobin 32.9 pg (27.0-33.0); Mean Platelet Volume 9.4 fL (9.4-12.4); Platelet Count 172 X10*3/uL (160-400); Red Blood Count 4.04 X10*6/uL (4.60-5.80); Red Cell Distribution Width 13.2 % (11.0-16.0); White Blood Count 13.9 X10*3/uL (4.8-10.8)
[2024-11-05 08:09] LABS: Anion Gap 15 (12-20); Blood Urea Nitrogen 16 mg/dL (9-16); Carbon Dioxide 23 mmol/L (22-29); Chloride 106 mmol/L (96-108); Creatinine Clr Calc Pharmacy 65.3; Estimated Glomerular Filt Rate > 60; Glucose Random 170 mg/dL (60-115); Magnesium 1.8 mg/dL (1.6-2.6); Potassium 3.4 mmol/L (3.3-5.1); Sodium 141 mmol/L (135-145)
--- NOTE | 2024-11-05 09:00 | PC.NURSE ---
0700- Patient a/ox1, speech mumbled intermittently, restless, agitated, required redirection multiple to remain in bed as he was attempting to stand.? 0900- Patient noted to have increased WOB, Respiration rate, gurgling speech, requiring more oxygen, deep suctioned (minimal secretions retrieved)- question of aspiration- MD Allyson aware and to bedside. Patient had aspiration precautions in place, HOB above 30 degrees, 1:1 feed, and had not yet had anything to eat or drink prior to incident. Breakfast tray noted undisturbed across room at sink. Additional IV access obtained.? 09- RR and oxygen requirement increased intermittently- initially responded to 3L via NC. Rhythm change- intermittently in afib/aflutter and bradycardic into the 30's. MD Allyson aware. Pacer pads in place.? 1015- Oxygen saturation dropped again, 85% with perfect pleth, switched to oxy mask for mouth breathing. Patient responsive to sternal rub, increased apneic episodes noted at this time- rapid response called.? 1020- nasal trumpet inserted to protect airway via respiratory. Patient DNR/DNI, confirmed with family.? 1130- Family at bedside. MD Allyson in to speak with them.? 1150-? [employer] oxygen therapy initiated.?
[2024-11-05] MEDS: 0.9 % Sodium Chloride Flush 3 ML SYRINGE IVFLUSH ×2 (09:06→16:39)
[2024-11-05] MEDS: Ampicillin Sodium/Sulbactam Na 3 GM in 0.9 % Sodium Chloride 100 ML IV (09:14)
[2024-11-05 09:46] LABS: Procalcitonin 0.08 ng/mL
--- NOTE | 2024-11-05 10:51 | MHC.SLORD ---
Speech Language Pathology Order Status: PARA MACHINE OPERATOR called on pt this morning, MD consulted. SEO ASSISTANT order on hold, will followup tomorrow.
[2024-11-05] MEDS: Piperacillin Sodium/Tazobactam 4.5 GM in 0.9 % Sodium Chloride 100 ML IV ×2 (11:31→16:34)
[2024-11-05] MEDS: Furosemide 20 MG/2 ML VIAL IVPUSH (11:31)
[2024-11-05 11:33] LABS: Alanine Aminotransferase 102 U/L (0-40); Albumin Level 3.6 g/dL (3.5-5.0); Alkaline Phosphatase 63 U/L (39-117); Aspartate Amino Transferase 73 U/L (5-37); Bilirubin Direct 0.3 mg/dL (0.0-0.5); Bilirubin Total 0.7 mg/dL (0.0-1.0); Total Protein 6.9 g/dL (6.5-8.0)
[2024-11-05] MEDS: Enoxaparin Sodium 80 MG/0.8 ML SYRINGE 40 MG SUBCUT (11:34)
[2024-11-05 12:38] LABS: VBG Base Excess 2.3 mmol/L; VBG HCO3 27 mmol/L (22-26); VBG pCO2 45 mmHg; VBG pH 7.39 (7.32-7.43); VBG pO2 106 mmHg
[2024-11-05 12:46] LABS: Ammonia 40 umol/L (13-55)
[2024-11-05 12:52] LABS: Venous Blood Gas Refer to POC result
[2024-11-05] MEDS: Morphine Sulfate 2 MG/ML CARTRIDGE IVPUSH (13:12)
[2024-11-05] MEDS: Morphine Sulfate 4 MG/ML CARTRIDGE IVPUSH ×2 (14:13→22:14)
--- NOTE | 2024-11-05 15:55 | P.PNIM_ITS ---
Subjective Subjective Date of Service: 11/05/24 Interval History: aspirating, not protecting airway pt DNR/DNI; confirmed with family. Nasal trumpet placed and pt placed on HFNC appears very uncomfortable, breathing rapidly, somnolent with only occasional opening of eyes, not verbalizing family called in urgently and considering comfort-focused care but waiting for sister to drive from [place], [place]; OK with giving one-time doses of morphine for now for air hunger Review of Systems Review of Systems: Yes Unobtainable due to mental condition Physical Exam 2 Vital Signs: Vital Signs: Last Vital Signs Temp 98.0 F 11/05/24 07:39 Pulse 93 11/05/24 07:39 Resp 30 H 11/05/24 11:35 BP 150/84 H 11/05/24 07:39 Pulse Ox 93 11/05/24 07:39 O2 Del Method Nasal Cannula 11/05/24 07:39 O2 Flow Rate 2 11/05/24 07:39 BMI result Body Mass Index 25.5 Gen: short of breath HEENT: sclera anicteric, moist mucus membranes Neck: supple Lungs: diminished Heart: bradycardic, irregular, no murmurs Abd: soft, non-tender, non-distended Ext: no edema Skin: warm/well-perfused Neuro: somnolent, minimally arousable Psych: impaired insight Objective Data Active Medications Acetaminophen (Acetaminophen 325 Mg Tablet) 975 mg PO Q6H PRN PRN Reason: Pain, Mild 1-3,fever,headache Amlodipine Besylate (Amlodipine Besylate 2.5 Mg Tablet) 2.5 mg PO DAILY [facility]; Protocol Last Admin: 11/01/24 07:34 Dose: 2.5 mg Documented By: AMEE Atorvastatin Calcium (Atorvastatin Calcium 10 Mg Tablet) 10 mg PO DAILY [facility] Last Admin: 11/05/24 09:08 Dose: Not Given Documented By: DENNIS Non-Admin Reason: ?aspiration at this time Benzonatate (Benzonatate 100 Mg Capsule) 100 mg PO TID PRN PRN Reason: Cough Last Admin: 11/02/24 08:23 Dose: 100 mg Documented By: ELENI Calcium Carbonate (Calcium Carbonate 750 Mg Tab.Chew) 750 mg PO Q4H PRN PRN Reason: Heartburn Donepezil HCl (Donepezil Hcl 5 Mg Tablet) 5 mg PO BEDTIME [facility] Last Admin: 11/04/24 20:57 Dose: Not Given Documented By: MAINE Non-Admin Reason: Patient Refused Doxazosin Mesylate (Doxazosin Mesylate 2 Mg Tablet) 4 mg PO DAILY [facility] Last Admin: 11/01/24 07:34 Dose: 4 mg Documented By: AMEE Enoxaparin Sodium (Enoxaparin Sodium 80 Mg/0.8 Ml Syringe) 40 mg SUBCUT Q24H [facility] Last Admin: 11/05/24 11:34 Dose: 40 mg Documented By: DENNIS Finasteride (Finasteride 5 Mg Tablet) 5 mg PO DAILY [facility] Last Admin: 11/05/24 09:08 Dose: Not Given Documented By: DENNIS Non-Admin Reason: ?aspiration at this time Piperacillin Sod/Tazobactam (Sod 4.5 gm/ Sodium Chloride) 100 mls @ 200 mls/hr IV Q6H [facility] Last Infusion: 11/05/24 12:19 Dose: Infused Documented By: DENNIS Lisinopril (Lisinopril 40 Mg Tablet) 40 mg PO DAILY [facility]; Protocol Last Admin: 11/01/24 07:34 Dose: 40 mg Documented By: AMEE Magnesium Hydroxide (Milk Of Magnesia 30 Ml Oral.Susp) 30 ml PO DAILY PRN PRN Reason: Constipation Melatonin (Melatonin 3 Mg Tablet) 6 mg PO BEDTIME PRN PRN Reason: Insomnia Ondansetron HCl (Ondansetron Hcl 4 Mg/2 Ml Vial) 4 mg IVPUSH Q8H PRN PRN Reason: Nausea and Vomiting Sodium Chloride (0.9 % Sodium Chloride Flush 3 Ml Syringe) 3 ml IVFLUSH QSHIFT [facility] Last Admin: 11/05/24 09:06 Dose: 3 ml Documented By: DENNIS Trazodone HCl (Trazodone Hcl 25 Mg Halftab) 25 mg PO BEDTIME PRN PRN Reason: Insomnia Labs 11/05/24 07:14 11/05/24 07:14 Labs: Laboratory Results - last 24 hr 11/05/24 11/05/24 11/05/24 07:14 12:27 12:31 MCV 98.0 MCH 32.9 MCHC 33.6 RDW 13.2 Plt Count 172 MPV 9.4 Absolute Nucleated RBC 0.000 Nucleated RBC % (auto) 0.0 VBG pH 7.39 VBG pCO2 45 VBG pO2 106 VBG HCO3 27 H VBG O2 Saturation 99.0 VBG Base Excess 2.3 Anion Gap 15 Estim Creat Clear Calc 65.3 Estimated GFR > 60 Random Glucose 170 H Calcium 9.0 Magnesium 1.8 Total Bilirubin 0.7 Direct Bilirubin 0.3 AST 73 H ALT 102 H Alkaline Phosphatase 63 Ammonia 40 Total Creatine Kinase 239 H Total Protein 6.9 Albumin 3.[address] head (11/03/24) 1. No acute intracranial abnormality by CT. One. 2. Fluid in the paranasal sinuses as can be seen with sinusitis. CXR (11/05/24) Slight worsened aeration in the right perihilar region. Remainder of the examination is unchanged. Microbiology Microbiology Results: Microbiology 10/30/24 19:27 Blood Culture - Final Blood - Venous No growth after 5 days. 10/30/24 19:19 Blood Culture - Final Blood - Venous No growth after 5 days. Assessment and Plan (1) Influenza A: Status: Acute Plan d7 for 83yo M with KASSIDY on CPAP, HTN, dementia presenting with weakness, fall; found to have influenza A with mild rhabdomyolysis and orthostatic syncope hospitalization complicated by acute encephalopathy 11/02-11/03 and now hypoxic respiratory failure acute toxic-metabolic encephalopathy - initially due to excess olanzapine + lorazepam; given flumazenil 11/03 and then improved but now worse, likely due to influenza and hypoxia aspiration PNA - started piperacillin-tazobactam, also added linezolid given possibility of post-influenza PNA goals of care - Discussed pt's clinical deterioriation and poor prognosis with family [son and daughter]. They agree that he would not want to suffer in this way but request that we continue current care [with the addition of one-time morphine pushes for dyspnea/pain] until his other daughter can get here from [place], [place]. 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 OTHER ISSUES new-onset AF with slow ventricular response - Cardiology consulted; hold off on full anticoagulation for now; hold off on B- hieu given rates as low as 33 hypoK - repleted presyncope due to orthostatic hypotension - given IV LR but then became overloaded and got a dose of furosemide; anithypertensives held influenza A - oseltamivir 10/31-11/05 rhabdomyolysis, mild - improved with IV LR transaminasemia - due to cross-reactivity with CPK HTN - HOLD antihypertensives [amlodipine, lisinopril, metoprolol, doxazosin] KASSIDY - declined CPAP in past CKD3 - SCr stable dementia - donepezil held HLD - atorvastatin held BPH - finasteride held VTE ppx - enoxaparin dispo - TBD; initially STR recommended In my clinical judgment, the patient requires continued inpatient hospitalization for the following reasons: encephalopathy Total time managing care of this patient today: 60 minutes. Quality Stroke Does the patient have a stroke diagnosis?: No VTE Prior VTE?: No VTE Risk Level:: Medical - moderate - high VTE Device Contraindication: Treatment Not Indicated VTE Drug Contraindication: N/A - Med Ordered
[2024-11-05] MEDS: Linezolid/D5W 600 MG/300 ML PIGGYBACK 300 MG IV (16:37)
--- NOTE | 2024-11-05 20:47 | PM.EVENT ---
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 They understand that this entails stopping all treatments and just keeping him pain-free and comfortable. They had the discussion with Dr. Valadez during the day and so did not have any questions for me. Time Spent With Patient Time: Total time managing care of this patient today _15___ minutes.
[2024-11-05] MEDS: LORazepam 2 MG/ML VIAL 1 MG IVPUSH (22:14)
[2024-11-05] MEDS: Scopolamine 1.5 MG PATCH.TD.3 TRANSDERMA (22:15)
--- NOTE | 2024-11-06 03:16 | PM.EVENT ---
Event Note Date of Service: 11/06/24 Event Note: NOTE Called and alerted that patient had Went to room and found patient supine in bed with daughter at bedside Unresponsive to both painful and verbal stimuli Pupils dilated and not reactive to direct light No heart sounds auscultated No breath sounds auscultated Patient pronounced at 0230 AM on Time Spent With Patient Time: Total time managing care of this patient today _30___ minutes.
--- NOTE | 2024-11-09 16:44 | PM.DDS ---
Discharge Sum: Prov Provider Primary care physician: Neil Ocasio MD Admitting clinician: Beatriz Munguia Attending physician on admission: Arias Sutherland Consults: 11/03/24 08:25 Consult to Cardiology Routine Consulting Provider: [facility] Reason for consultation: new af 11/05/24 20:50 Consult to Case Management Routine Comment: Consult to Church Musician Routine Comment: Consult to Hospice Routine Comment: Pronouncing clinician: Arias Sutherland Discharge Sum: Diag Contributing Factors (1) Influenza A: (2) Acute encephalopathy: (3) Acute respiratory failure with hypoxia: (4) PAF (paroxysmal atrial fibrillation): (5) Aspiration pneumonia: Discharge Sum: Summary Date and Time Date of admission: 11/01/24 09:03 Date of : 11/06/24 Time of : 02:30 Summary Details: From the history and physical by the admitting hospitalist, CHARLINE Munguia, 11/01/24: Patient is an 83-year-old male with a past medical history significant for obstructive sleep apnea on CPAP, HTN, and dementia who presented to the ED due to weakness starting around noon today. He reports a dry to getting out of his bed twice insulin to the floor. No loss of consciousness, confusion, seizure-like activity, head strike or injuries. He does have a mild fever and body aches with runny nose but denies any sore throat, congestion, headache, chest pain or shortness of breath. He reports that he lives at [facility] and has good support when he goes back home. 83yo M with KASSIDY on CPAP, HTN, and ementia; presenting with weakness, fall; found to have influenza A with mild rhabdomyolysis and orthostatic syncope. Hospitalization complicated by acute encephalopathy 11/02-11/03 and then hypoxic respiratory failure. Initially, due to agitated delirium, he was given olanzapine + lorazepam; but then he was given flumazenil 11/03 due to concern for excess sedation. His mental status improved but then worsened and he started aspirating. He did not improve despite starting antibiotics. He also developed new-onset AF with slow ventricular response. I discussed his clinical deterioriation and poor prognosis with his adult children. They agree that he would not want to suffer in this way and he was eventually transitioned to SAP FICO ARCHITECT care. He without apparent distress on 11/06/24 at 02:30. Additional Data Confirmation of as documented by pronouncing clinician: no pulse, no respirations, no heart sounds and pupils fixed and dilated Family: at bedside Attending physician: Royce Pennington MD Was code activated?: No Hospice patient?: Yes
== END 2024-11-06 07:33 | disposition expired | DRG 193 ==
LOC: HO.ED 21:11 → HO.EDOVER 21:19 → HO.S3 23:37 → HO.IMC 11-03 07:37
PROVIDERS: Family Medicine; Physician Assistant; Admitting Provider Physician Assistant; Emergency Provider Emergency Medicine Emergency Medical Services; PCP Internal Medicine; Visit Provider Hospitalist
DX: J10.1 Influenza due to other identified influenza virus with other respiratory manifestations (principal); G92.8 Other toxic encephalopathy; J96.01 Acute respiratory failure with hypoxia; F05 Delirium due to known physiological condition; M62.82 Rhabdomyolysis; E87.6 Hypokalemia; N40.0 Benign prostatic hyperplasia without lower urinary tract symptoms; J69.0 Pneumonitis due to inhalation of food and vomit; Z51.5 Encounter for palliative care; I48.0 Paroxysmal atrial fibrillation; I95.1 Orthostatic hypotension; Z66 Do not resuscitate; I44.0 Atrioventricular block, first degree; I12.9 Hypertensive chronic kidney disease with stage 1 through stage 4 chronic kidney disease, or unspecified chronic kidney disease; F03.90 Unspecified dementia, unspecified severity, without behavioral disturbance, psychotic disturbance, mood disturbance, and anxiety; N18.30 Chronic kidney disease, stage 3 unspecified; G47.33 Obstructive sleep apnea (adult) (pediatric); Z20.822 Contact with and (suspected) exposure to COVID-19; Z79.899 Other long term (current) drug therapy
CPT/HCPCS: 0241U; 36415; 70450; 71045; 80048; 80053; 80076; 81001; 82140; 82248; 82550; 82803; 82947; 83605; 83690; 83735; 83880; 84145; 84443; 84484; 85025; 85027; 87040; 93005; 97161; 99285; J0295; J1650; J1940; J2020; J2060; J2270; J2359; J2543; J3480; J7120

== ENCOUNTER → 2024-10-30 18:54 | Outpatient (BNV) | payer MEDICARE, SELFPAY | PROVIDERS: Admitting Provider Physician Assistant; Emergency Provider Emergency Medicine Emergency Medical Services; PCP Internal Medicine; Visit Provider Internal Medicine Cardiovascular Disease | DX: I44.0 Atrioventricular block, first degree (principal); I25.2 Old myocardial infarction | CPT/HCPCS: 93010 ==

== ENCOUNTER → 2024-10-30 19:51 | Outpatient (BNV) | payer MEDICARE, SELFPAY | PROVIDERS: Admitting Provider Physician Assistant; Emergency Provider Emergency Medicine Emergency Medical Services; PCP Internal Medicine; Visit Provider Student in an Organized Health Care Education/Training Program | DX: R06.02 Shortness of breath (principal) | CPT/HCPCS: 71045 ==

== ENCOUNTER → 2024-10-30 20:59 | Outpatient (BNV) | payer MEDICARE, SELFPAY | PROVIDERS: Admitting Provider Physician Assistant; Emergency Provider Emergency Medicine Emergency Medical Services; PCP Internal Medicine; Visit Provider Nurse Practitioner Acute Care | DX: J10.1 Influenza due to other identified influenza virus with other respiratory manifestations (principal) | CPT/HCPCS: 99222; 99232; 99233; 99239 ==

== ENCOUNTER 2024-11-01 09:03 | Outpatient (BNV) | payer MEDICARE, SELFPAY | END 2024-11-05 09:39 | PROVIDERS: Admitting Provider Physician Assistant; Emergency Provider Emergency Medicine Emergency Medical Services; PCP Internal Medicine; Visit Provider Radiology Diagnostic Radiology | DX: J69.0 Pneumonitis due to inhalation of food and vomit (principal) | CPT/HCPCS: 71045 ==

== ENCOUNTER 2024-11-01 09:03 | Outpatient (BNV) | payer MEDICARE, SELFPAY | END 2024-11-03 14:06 | PROVIDERS: Admitting Provider Physician Assistant; Emergency Provider Emergency Medicine Emergency Medical Services; PCP Internal Medicine; Visit Provider Internal Medicine Cardiovascular Disease | DX: I49.9 Cardiac arrhythmia, unspecified (principal) | CPT/HCPCS: 93010 ==

== ENCOUNTER 2024-11-01 09:03 | Outpatient (BNV) | payer MEDICARE, SELFPAY | END 2024-11-03 08:30 | PROVIDERS: Admitting Provider Physician Assistant; Emergency Provider Emergency Medicine Emergency Medical Services; PCP Internal Medicine; Visit Provider Radiology Diagnostic Radiology | DX: J01.90 Acute sinusitis, unspecified (principal) | CPT/HCPCS: 70450; 71045 ==

== ENCOUNTER → 2024-11-01 09:03 | Outpatient (BNV) | payer MEDICARE, SELFPAY | PROVIDERS: Admitting Provider Physician Assistant; Emergency Provider Emergency Medicine Emergency Medical Services; PCP Internal Medicine; Visit Provider Internal Medicine Cardiovascular Disease | DX: J10.1 Influenza due to other identified influenza virus with other respiratory manifestations (principal); I48.0 Paroxysmal atrial fibrillation | CPT/HCPCS: 99222 ==